=== PATIENT | female | born 1955 | race Caucasian/White ===

== ENCOUNTER 2017-10-30 19:44 | Emergency (ER) | payer OTHER ==
[2017-10-30] MEDS ORDERED: DIAZEPAM 10 MG/2 ML INJ SYRINGE ONE (20:55)
[2017-10-30 20:58] LABS: Absolute Lymphocytes (CBC) 0.3 K/uL (0.7-4.9); Absolute Monocytes 0.4 K/uL (0.1-1.3); Absolute Neutrophil 10.2 K/uL (1.8-8.0); Basophils % 0.3 % (0-1.3); Eosinophils % 0.2 % (0-4.4); Hematocrit 36.1 % (36.0-45.0); Lymphocytes % 2.5 % (15.3-44.8); MCH 31.3 pg (27.0-35.0); MCV 91.9 fL (80-100); MPV 8.9 fL (7.6-11.3); RBC Red Blood Cell Count 3.93 M/uL (3.86-4.86)
[2017-10-30] MEDS ORDERED: NA CHLORIDE 0.9% 1,000 ML ONE ×2 (20:58→21:44)
[2017-10-30 21:13] LABS: Potassium 4.8 mEq/L (3.6-5.0)
[2017-10-30 21:17] LABS: Blood Morphology Comment NOT SEEN (NOT SEEN); Platelet Estimate ADEQ; Urine White Blood Cell Casts OK
[2017-10-30 21:18] LABS: Urine Blood TRACE (NEG); Urine Glucose 1+ (NEG); Urine Protein 1+ (NEG)
[2017-10-30 21:19] LABS: Albumin 4.1 g/dL (3.2-5.5); Bilirubin Direct 0.2 mg/dL (0-0.2); Bilirubin Total 0.9 mg/dL (0.3-1.2); Magnesium 1.9 mg/dL (1.8-2.5); Protein, Total 7.1 g/dL (6.0-8.3)
[2017-10-30 21:26] LABS: CKMB Creatine Kinase MB 27.2 ng/ml (0.3-4.0)
[2017-10-30 21:29] LABS: Protime INR 1.01
[2017-10-30] MEDS ORDERED: INSULIN -REGULAR HUMAN 50 UNIT/0.5 ML ML ONE (21:44)
--- NOTE | 2017-10-30 23:05 | ER ---
Nurse's Notes [facility] Name: Phoebe Esteban Age: 62 yrs Sex: Female : 1955 Arrival Date: 10/30/2017 Time: 19:45 Bed 8 Private MD: Esau Hart V Diagnosis: Type 1 diabetes mellitus;Rhabdomyolysis;Stiff-man syndrome;Unspecified kidney failure Presentation: 10/30 19:45 Presenting complaint: EMS states: SHE HAS STIFFMAN SYNDROME AND GOT STUCK STANDING IN bp THE BATHROOM FROM 3 TO 7. Transition of care: patient was not received from another setting of care. Onset of symptoms was October 30, 2017 at 15:00. Initial Sepsis Screen: Does the patient meet any 2 criteria? No. Patient's initial sepsis screen is negative. Does the patient have a suspected source of infection? No. Patient's initial sepsis screen is negative. Care prior to arrival: IV initiated. 22 GA, in the left antecubital area. 19:45 Method Of Arrival: EMS: [facility] bp 19:45 Acuity: NELL 3 bp Triage Assessment: 19:51 General: Appears distressed, uncomfortable, slender, Behavior is cooperative, bp appropriate for age, anxious. Pain: Complains of pain in GENERALIZED. EENT: No deficits noted. Neuro: Level of Consciousness is awake, alert, obeys commands, Oriented to person, place, time, situation, Appropriate for age GENERALIZED TRUNCAL STIFFNESS. Cardiovascular: No deficits noted. Respiratory: Airway is patent Respiratory effort is even, unlabored, Respiratory pattern is regular, symmetrical. GI: No deficits noted. : No signs and/or symptoms were reported regarding the genitourinary system. Derm: No deficits noted. Musculoskeletal: Circulation, motion, and sensation intact. Range of motion: limited in left hip, left knee, left ankle, right hip, right knee and right ankle. Historical: - Allergies: 19:51 No Known Allergies; bp - Home Meds: 19:51 Humalog 100 unit/mL Sub-Q crtg [Active]; TAJAYO [Active]; MAMENATINE [Active]; bp tizanidine oral oral [Active]; - PMHx: 19:51 Diabetes - IDDM; Hypertension; STIFFMAN SYNDROME; Dementia; bp - Immunization history:: Adult Immunizations up to date. - Social history:: Smoking status: Patient/guardian denies using tobacco. - Family history:: not pertinent. Screenin:55 Abuse screen: Denies threats or abuse. Denies injuries from another. Nutritional bp screening: No deficits noted. Tuberculosis screening: No symptoms or risk factors identified. Fall Risk No fall in past 12 months (0 pts). Secondary diagnosis (15 points) dementia, impaired mobility, No IV (0 pts). Ambulatory Aid- Crutches/Cane/Walker (15 pts). Gait- Normal/Bed Rest/Wheelchair (0 pts) Mental Status- Oriented to own ability (0 pts). Total Nelson Fall Scale indicates Low Risk Score (25-44 pts). Fall prevention measures have been instituted. Side Rails Up X 2 Frequent Obs/Assesments occuring Family Present and informed to notify staff if they need to leave bedside As available Patient and Family Educated on Fall Prevention Program and strategies. Assessment: 19:55 General: SEE TRIAGE NOTE. bp 21:58 Reassessment: PT AFFIRMS RELIEF OF S/S. VS STABLE ON MONITOR. REPEAT CARDIACS DUE AT bp 2230. 22:48 Reassessment: PT VS STABLE ON MONITOR, MILD ST NOTED. REPEAT LABS IN PROCESS, DISPO bp PENDING. 23:16 Reassessment: PT D/C HOME VIA W/C, DX WITH EXACERBATION OF CHRONIC CONDITIONS bp (STIFF-MAN SYNDROME AND DM) AND RHABDOMYOLYSIS. Vital Signs: 19:51 BP 172 / 89; Pulse 108; Resp 20; Temp 97.9; Pulse Ox 98% ; Weight 40.82 kg (R); bp 21:00 BP 149 / 82; Pulse 106; Resp 23; Pulse Ox 97% ; bp 22:46 BP 177 / 89; Pulse 111; Resp 23; Pulse Ox 98% ; bp ED Course: 19:45 Patient arrived in ED. am2 19:45 Félix Dumont, CHOCO is Primary Nurse. bp 19:45 Esau Hart MD is Private Physician. am2 19:47 Triage completed. bp 19:55 Arm band placed on. bp 19:55 Patient has correct armband on for positive identification. Bed in low position. Call bp light in reach. Side rails up X2. Adult w/ patient. 20:23 Duc Rubalcava MD is Attending Physician. chilango 20:30 Carrillo cath inserted, using sterile technique, 16 Fr., by tx, balloon inflated, to tl2 gravity drainage, urine specimen collected. returned clear yellow urine. Patient tolerated well. 21:24 Notified ED physician of a critical lab result(s). ckmb 27.2. 23:05 Esau Hart MD is Referral Physician. [facility] 23:16 No provider procedures requiring assistance completed. Carrillo cath removed intact, bp balloon deflated. IV discontinued, intact, bleeding controlled, No redness/swelling at site. Pressure dressing applied. Administered Medications: 20:30 Drug: NS 0.9% 1000 ml Route: IV; Rate: 125 ml/hr; Site: left antecubital; bp 21:08 Drug: Valium 2 mg Route: IVP; Site: left antecubital; bp 21:33 Follow up: Response: No adverse reaction bp 21:51 Drug: NS 0.9% 1000 ml Route: IV; Rate: 1 bolus; Site: left antecubital; bp 21:51 Drug: Insulin Regular Human 10 units {Co-Signature: tl2 (Josephine Chiu RN).} Route: IVP; bp Site: left antecubital; 22:47 Follow up: Response: No adverse reaction bp 22:20 Drug: Valium 2 mg Route: IVP; Site: left antecubital; bp 22:46 Follow up: Response: No adverse reaction bp Point of Care Testing: Blood Glucose: 22:46 Blood Glucose: 175 mg/dL; bp Ranges: Outcome: 23:05 Discharge ordered by . chilango 23:17 Discharged to home via wheelchair, with family. bp 23:17 Condition: stable 23:17 Discharge instructions given to patient, Instructed on discharge instructions, follow up and referral plans. 23:45 Patient left the ED. bp Signatures: Duc Rubalcava MD MD cha Chretien, Felicia RN Josephine Navas RN RN tl2 Shy Edouard am2 Félix Dumont RN RN bp Taylor Knox RN tl2 Corrections: (The following items were deleted from the chart) 21:09 19:45 Care prior to arrival: None. bp bp
--- NOTE | 2017-10-30 23:05 | EDPHYS ---
Physician Documentation [facility] Name: Phoebe Esteban Age: 62 yrs Sex: Female : 1955 Arrival Date: 10/30/2017 Time: 19:45 Bed 8 Private MD: Esau Hart V ED Physician Duc Rubalcava HPI: 10/30 21:25 This 62 yrs old Female presents to ER via EMS with complaints of Stiffness. chilango 21:25 hx of stiffman syndrome. Onset: The symptoms/episode began/occurred just prior to [facility] arrival. Severity of symptoms: At their worst the symptoms were mild in the emergency department the symptoms are unchanged. The patient has not experienced similar symptoms in the past. Historical: - Allergies: 19:51 No Known Allergies; bp - Home Meds: 19:51 Humalog 100 unit/mL Sub-Q crtg [Active]; TAJAYO [Active]; MAMENATINE [Active]; bp tizanidine oral oral [Active]; - PMHx: 19:51 Diabetes - IDDM; Hypertension; STIFFMAN SYNDROME; Dementia; bp - Immunization history:: Adult Immunizations up to date. - Social history:: Smoking status: Patient/guardian denies using tobacco. - Family history:: not pertinent. ROS: 21:25 Constitutional: Negative for fever, chills, and weight loss, Eyes: Negative for injury, chilango pain, redness, and discharge, ENT: Negative for injury, pain, and discharge, Neck: Negative for injury, pain, and swelling, Cardiovascular: Negative for chest pain, palpitations, and edema, Respiratory: Negative for shortness of breath, cough, wheezing, and pleuritic chest pain, Abdomen/GI: Negative for abdominal pain, nausea, vomiting, diarrhea, and constipation, : Negative for injury, bleeding, discharge, and swelling, MS/Extremity: Negative for injury and deformity, Skin: Negative for injury, rash, and discoloration, Neuro: Negative for headache, weakness, numbness, tingling, and seizure, Psych: Negative for depression, anxiety, suicide ideation, homicidal ideation, and hallucinations, Allergy/Immunology: Negative for hives, rash, and allergies, Endocrine: Negative for neck swelling, polydipsia, polyuria, polyphagia, and marked weight changes, Hematologic/Lymphatic: Negative for swollen nodes, abnormal bleeding, and unusual bruising. 21:25 Back: Positive for decreased range of motion, pain at rest, pain with movement. Exam: 21:25 Constitutional: This is a well developed, well nourished patient who is awake, alert, chilango and in no acute distress. Head/Face: Normocephalic, atraumatic. Eyes: Pupils equal round and reactive to light, extra-ocular motions intact. Lids and lashes normal. Conjunctiva and sclera are non-icteric and not injected. Cornea within normal limits. Periorbital areas with no swelling, redness, or edema. ENT: Nares patent. No nasal discharge, no septal abnormalities noted. Tympanic membranes are normal and external auditory canals are clear. Oropharynx with no redness, swelling, or masses, exudates, or evidence of obstruction, uvula midline. Mucous membranes moist. Neck: Trachea midline, no thyromegaly or masses palpated, and no cervical lymphadenopathy. Supple, full range of motion without nuchal rigidity, or vertebral point tenderness. No Meningismus. Chest/axilla: Normal chest wall appearance and motion. Nontender with no deformity. No lesions are appreciated. Cardiovascular: Regular rate and rhythm with a normal S1 and S2. No gallops, murmurs, or rubs. Normal PMI, no JVD. No pulse deficits. Respiratory: Lungs have equal breath sounds bilaterally, clear to auscultation and percussion. No rales, rhonchi or wheezes noted. No increased work of breathing, no retractions or nasal flaring. Abdomen/GI: Soft, non-tender, with normal bowel sounds. No distension or tympany. No guarding or rebound. No evidence of tenderness throughout. Skin: Warm, dry with normal turgor. Normal color with no rashes, no lesions, and no evidence of cellulitis. MS/ Extremity: Pulses equal, no cyanosis. Neurovascular intact. Full, normal range of motion. Neuro: Awake and alert, GCS 15, oriented to person, place, time, and situation. Cranial nerves II-XII grossly intact. Motor strength 5/5 in all extremities. Sensory grossly intact. Cerebellar exam normal. Normal gait. Psych: Awake, alert, with orientation to person, place and time. Behavior, mood, and affect are within normal limits. 21:25 Back: pain, that is mild, ROM is painful, normal spinal alignment noted, CVA tenderness, is absent. Vital Signs: 19:51 BP 172 / 89; Pulse 108; Resp 20; Temp 97.9; Pulse Ox 98% ; Weight 40.82 kg (R); bp 21:00 BP 149 / 82; Pulse 106; Resp 23; Pulse Ox 97% ; bp 22:46 BP 177 / 89; Pulse 111; Resp 23; Pulse Ox 98% ; bp MDM: 20:23 Patient medically screened. [facility] 21:31 Data reviewed: vital signs, nurses notes, lab test result(s), EKG, radiologic studies, chilango plain films. 10/30 20:28 Order name: Basic Metabolic Panel; Complete Time: 21:28 [facility] 10/30 20:28 Order name: BNP; Complete Time: 21:28 [facility] 10/30 20:28 Order name: CBC with Diff; Complete Time: 21:28 [facility] 10/30 20:28 Order name: Ckmb; Complete Time: 21:28 [facility] 10/30 20:28 Order name: CPK; Complete Time: 21:28 [facility] 10/30 20:28 Order name: LFT's; Complete Time: 21:28 [facility] 10/30 20:28 Order name: Magnesium; Complete Time: 21:28 [facility] 10/30 20:28 Order name: PT-INR; Complete Time: 22:54 [facility] 10/30 20:28 Order name: Ptt, Activated; Complete Time: 22:54 [facility] 10/30 20:28 Order name: Troponin (emerg Dept Use Only); Complete Time: 21:28 [facility] 10/30 20:28 Order name: Lipase; Complete Time: 21:28 [facility] 10/30 20:28 Order name: Blood Culture Adult (2) [facility] 10/30 20:28 Order name: Urine Culture [facility] 10/30 20:59 Order name: CBC Smear Scan; Complete Time: 21:28 EDMS 10/30 20:28 Order name: EKG; Complete Time: 20:28 [facility] 10/30 20:28 Order name: Cardiac monitoring; Complete Time: 20:51 [facility] 10/30 20:28 Order name: EKG - Nurse/Tech; Complete Time: 20:51 [facility] 10/30 20:28 Order name: IV Saline Lock; Complete Time: 20:51 [facility] 10/30 21:01 Order name: Urine Dipstick--Ancillary (enter results); Complete Time: 21:28 eb 10/30 21:32 Order name: Ckmb [facility] 10/30 21:32 Order name: Creatine Phosphokinase [facility] 10/30 21:32 Order name: Troponin (emerg Dept Use Only) [facility] 10/30 20:28 Order name: Labs collected and sent; Complete Time: 20:51 [facility] 10/30 20:28 Order name: O2 Per Protocol; Complete Time: 20:51 [facility] 10/30 20:28 Order name: O2 Sat Monitoring; Complete Time: 20:51 [facility] 10/30 20:28 Order name: Urine Dipstick-Ancillary (obtain specimen); Complete Time: 20:51 [facility] 10/30 20:37 Order name: Carrillo; Complete Time: 20:39 bp 10/30 21:32 Order name: Repeat Cardiac Enzymes at: 1030pm; Complete Time: 22:46 [facility] 10/30 22:20 Order name: Fingerstick Glucose: AT 2230; Complete Time: 22:46 bp Administered Medications: 20:30 Drug: NS 0.9% 1000 ml Route: IV; Rate: 125 ml/hr; Site: left antecubital; bp 21:08 Drug: Valium 2 mg Route: IVP; Site: left antecubital; bp 21:33 Follow up: Response: No adverse reaction bp 21:51 Drug: NS 0.9% 1000 ml Route: IV; Rate: 1 bolus; Site: left antecubital; bp 21:51 Drug: Insulin Regular Human 10 units {Co-Signature: tl2 (Josephine Chiu RN).} Route: IVP; bp Site: left antecubital; 22:47 Follow up: Response: No adverse reaction bp 22:20 Drug: Valium 2 mg Route: IVP; Site: left antecubital; bp 22:46 Follow up: Response: No adverse reaction bp Point of Care Testing: Blood Glucose: 22:46 Blood Glucose: 175 mg/dL; bp Ranges: Critical Glucose Levels:Adult <50 mg/dl or >400 mg/dl <40 mg/dl or >180 mg/dl Disposition: 10/30/17 23:05 Discharged to Home. Impression: Type 1 diabetes mellitus, Rhabdomyolysis, Stiff-man syndrome, Unspecified kidney failure. - Condition is Stable. - Discharge Instructions: Type 1 Diabetes Mellitus, Adult, Rhabdomyolysis, Diabetes Mellitus and Food. - Medication Reconciliation Form, Thank You Letter, Antibiotic Education, Prescription Opioid Use form. - Follow up: Esau Hart; When: 1 - 2 days; Reason: Recheck today's complaints, Continuance of care, Re-evaluation by your physician. - Problem is new. - Symptoms have improved. Signatures: Dispatcher [employer] EDMO Duc Rubalcava MD MD cha Peltier, Brian, RN RN bp Josephine Chiu RN tl2 Corrections: (The following items were deleted from the chart) 20:44 20:28 Chest Single View+RAD.RAD.BRZ ordered. EDMS EDMS 21:33 21:31 Chest Single View+RAD.RAD.BRZ ordered. EDMO EDMS 21:33 21:31 Chest Single View+RAD.RAD.BRZ ordered. [facility] EDMS 23:45 23:05 10/30/2017 23:05 Discharged to Home. Impression: Type 1 diabetes mellitus; bp Rhabdomyolysis; Stiff-man syndrome; Unspecified kidney failure. Condition is Stable. Discharge Instructions: Type 1 Diabetes Mellitus, Adult, Rhabdomyolysis, Diabetes Mellitus and Food. Forms are Medication Reconciliation Form, Thank You Letter, Antibiotic Education, Prescription Opioid Use. Follow up: Esau Hart; When: 1 - 2 days; Reason: Recheck today's complaints, Continuance of care, Re-evaluation by your physician. Problem is new. Symptoms have improved. chilango
[2017-10-30 23:28] LABS: CKMB Creatine Kinase MB 31.1 ng/ml (0.3-4.0)
[2017-10-30 23:49] VITALS: TEMP 97.9
[2017-10-30 23:52] VITALS: BP 177/89; O2SAT 98
--- NOTE | 2017-10-31 06:26 | EKG ---
Test Date: 2017-10-30 Test Time: 20:48:19 Tank Erector: ALYCIA MEASUREMENT RESULTS: Intervals: Rate: 104 IN: 120 QRSD: 82 QT: 334 QTc: 439 Terril: P: 78 IN: 120 QRS: 72 T: 51 INTERPRETIVE STATEMENTS: Sinus tachycardia Right atrial enlargement Borderline ECG No previous ECG available for comparison Electronically Signed On 10-31-17 06:25:41 CDT by Raul Markham
== END 2017-10-30 23:45 | disposition home or self-care (01) ==
LOC: ER 19:44
DX: M62.82 Rhabdomyolysis (principal); G25.82 Stiff-man syndrome; E10.9 Type 1 diabetes mellitus without complications; N19 Unspecified kidney failure; I10 Essential (primary) hypertension; Z79.4 Long term (current) use of insulin
CPT/HCPCS: 36415; 51702; 80048; 80076; 81003; 82550 ×2; 82553 ×2; 82962; 83690; 83735; 83880; 84484 ×2; 85025; 85610; 85730; 87040 ×2; 87086; 87088; 93005; 96374; 96375; 99284; J3360; J7030 ×2

== ENCOUNTER 2022-05-02 13:39 | Emergency (ER) | payer OTHER ==
[2022-05-02 14:31] LABS: Urine Blood Negative (Negative); Urine Glucose Negative (Negative); Urine Protein 1+ (Negative); Urine Specific Gravity >=1.030 (1.005-1.030)
[2022-05-02 14:50] LABS: Absolute Lymphocytes (CBC) 0.8 K/uL (0.7-4.9); Lymphocytes % 27.9 % (15.3-44.8); MCV 91.1 fL (80-100); MPV 9.1 fL (7.6-11.3)
[2022-05-02 14:51] LABS: Protime INR 0.99
--- NOTE | 2022-05-02 14:54 | RAD REPORT ---
EXAM DESCRIPTION: CT - Head Brain Wo Cont - 05/02/2022 2:39 pm CLINICAL HISTORY: Mental status change, persistent or worsening COMPARISON: No comparisons TECHNIQUE: All CT scans are performed using dose optimization technique as appropriate and may inclu de automated exposure control or mA/KV adjustment according to patient size. FINDINGS: No intracranial hemorrhage, hydrocephalus or extra-axial fluid collection.No areas of brai n edema or evidence of midline shift. Mild chronic small vessel ischemic changes The paranasal sinuses and mastoids are clear. The calvarium is intact. IMPRESSION: No acute intracranial abnormality.
[2022-05-02 15:08] LABS: Albumin 3.6 g/dL (3.4-5.0); Bilirubin Direct 0.1 mg/dL (0-0.2); Bilirubin Total 0.3 mg/dL (0.2-1.0); Magnesium 1.9 mg/dL (1.8-2.4); Potassium 3.6 mmol/L (3.5-5.1); Protein, Total 6.8 g/dL (6.4-8.2); Troponin High Sensitivity 11.3 pg/mL (<58.9); Urine Bacteria <20 /HPF (<20); Urine Mucus Slight /HPF (None Seen); Urine RBC <5 /HPF (None Seen)
--- NOTE | 2022-05-02 15:11 | RAD REPORT ---
EXAM DESCRIPTION: RAD - Chest Single View - 05/02/2022 2:59 pm CLINICAL HISTORY: COUGH COMPARISON: Abdomen Acute Series dated 03/31/2017 FINDINGS: Lines: None. Lungs: No evidence of edema or pneumonia. Pleural: No significant pleural effusions or pneumothorax. Cardiac: The heart size is within normal limits. Mediastinum: Within normal limits. Bones: No acute fractures. ACDF in the cervical spine. Intramedullary rode in the left humerus. Remot e right sided fractures. Other: None IMPRESSION: No acute cardiopulmonary disease.
[2022-05-02] MEDS ORDERED: CEFTRIAXONE 1000 MG/VIAL ONE (15:20)
[2022-05-02] MEDS ORDERED: NA CHLORIDE 0.9% 1,000 ML ONE (16:19)
--- NOTE | 2022-05-02 17:04 | ER ---
Nurse's Notes [facility] Name: Phoebe Esteban Age: 67 yrs Sex: Female : 1955 Arrival Date: 05/02/2022 Time: 13:44 Bed 5 Private MD: Diagnosis: UTI/ Urinary tract infection, site not specified;Type 1 diabetes mellitus with hyperglycemia;Other specified diabetes mellitus with hypoglycemia without coma Presentation: 05/02 13:48 Chief complaint: EMS states: that caregiver states she hasn't been herself for 4 days-1 mb9 week. States pt is having increased weakness and not acting like self. Caregiver is also worried about her broken tooth. EMS states that blood sugar was 51 upon arrival. They administered 30g oral glucose and increased to 56. Coronavirus screen: Client denies travel out of the [place] in the last 14 days. Ebola Screen: No symptoms or risks identified at this time. Initial Sepsis Screen: Does the patient meet any 2 criteria? No. Patient's initial sepsis screen is negative. Does the patient have a suspected source of infection? No. Patient's initial sepsis screen is negative. Risk Assessment: Do you want to hurt yourself or someone else? Patient reports no desire to harm self or others. Onset of symptoms was April 26, 2022. 13:48 Method Of Arrival: EMS: [facility] mb9 13:59 Acuity: NELL 2 mb9 Triage Assessment: 13:55 General: Appears in no apparent distress. comfortable, Behavior is calm, cooperative, mb9 appropriate for age. Pain: Denies pain. Historical: - Allergies: 13:51 No Known Allergies; mb9 - Home Meds: 13:51 Lisinopril Oral [Active]; Humalog 100 unit/mL Sub-Q crtg [Active]; mb9 - PMHx: 13:51 Diabetes - IDDM; Hypertension; STIFFMAN SYNDROME; Dementia; mb9 - PSHx: 13:51 Unable to Obtain; mb9 - Immunization history:: Adult Immunizations not up to date. - Social history:: Smoking status: Patient denies any tobacco usage or history of. Screenin:00 Abuse screen: Denies threats or abuse. Nutritional screening: No deficits noted. mb9 Tuberculosis screening: No symptoms or risk factors identified. Fall Risk None identified. Assessment: 14:00 General: Appears in no apparent distress. comfortable, Behavior is calm, cooperative, mb9 appropriate for age. 14:00 Pain: Denies pain. Neuro: Level of Consciousness is awake, alert, obeys commands, mb9 Oriented to person, place, time, situation, Appropriate for age. Cardiovascular: Heart tones S1 S2 present Rhythm is regular Chest pain is denied. Respiratory: Airway is patent Respiratory effort is even, unlabored, Respiratory pattern is tachypnea Breath sounds are clear bilaterally. GI: Abdomen is flat, Bowel sounds present X 4 quads. : Urine is cloudy. EENT: No signs and/or symptoms were reported regarding the EENT system. Derm: Skin is intact, Skin is dry, Skin is normal, Skin temperature is cool. Musculoskeletal: Capillary refill < 3 seconds, in bilateral Range of motion: limited in bilateral lower extremities. 14:26 Reassessment: first set of blood cultures set at 1426. mb9 15:46 General: Appears in no apparent distress. comfortable, Behavior is calm, cooperative, mb9 appropriate for age. Pain: Denies pain. Neuro: Level of Consciousness is awake, alert, obeys commands, Oriented to person, place, time, situation, Appropriate for age. Cardiovascular: Heart tones S1 S2 present Rhythm is regular. Respiratory: Airway is patent Respiratory effort is even, unlabored, Respiratory pattern is regular, Breath sounds are clear bilaterally. Derm: Skin is intact, Skin is dry, Skin is normal, Skin temperature is cool. 17:17 Pain: Denies pain. Neuro: Level of Consciousness is awake, alert, obeys commands, mb9 Oriented to person, place, time, situation, Appropriate for age. Cardiovascular: Heart tones S1 S2 present Rhythm is regular. Respiratory: Airway is patent Respiratory effort is even, unlabored, Respiratory pattern is regular. Derm: Skin is pink, warm \T\ dry. Vital Signs: 13:48 BP 182 / 92; Pulse 99; Resp 18; Temp 96.9(O); Pulse Ox 98% on R/A; Weight 63.5 kg (R); mb9 Height 5 ft. 4 in. (162.56 cm) (R); Pain 0/10; 14:14 BP 194 / 81; Pulse 89; Resp 28; Pulse Ox 98% on R/A; mb9 16:16 BP 194 / 89; Pulse 88; Resp 20; Pulse Ox 100% on R/A; Pain 0/10; mb9 17:16 BP 182 / 92; Pulse 88; Resp 18; Pulse Ox 100% on R/A; mb9 13:48 Body Mass Index 24.03 (63.50 kg, 162.56 cm) mb9 ED Course: 13:44 Patient arrived in ED. aa5 13:48 Cee Galvin, CHOCO is Primary Nurse. mb9 13:49 Duc Rubalcava MD is Attending Physician. chilango 13:51 Triage completed. mb9 13:53 Arm band placed on. mb9 14:00 Placed in gown. Bed in low position. Call light in reach. Side rails up X 1. Client mb9 placed on continuous cardiac and pulse oximetry monitoring. NIBP monitoring applied. groundwater monitoring technician on. Warm blanket given. 14:25 Urine collected: Urine Micro sent to lab. aa5 14:30 Lipase Sent. mb9 14:30 Urine Microscopic Only Sent. mb9 14:30 Basic Metabolic Panel Sent. mb9 14:30 CBC with Diff Sent. mb9 14:30 LFT's Sent. mb9 14:30 Magnesium Sent. mb9 14:30 Troponin HS Sent. mb9 14:30 PT-INR Sent. mb9 14:30 NT PRO-BNP Sent. mb9 14:32 Inserted saline lock: 20 gauge in right forearm, using aseptic technique. Blood mb9 collected. 14:32 Maintain EMS IV. Dressing intact. Good blood return noted. Site clean \T\ dry. Gauge \T\ mb 9 site: 20g in left AC. 14:41 CT Head Brain wo Cont In Process Unspecified. EDMS 14:55 Blood Culture Adult (2) Sent. mb9 14:55 Lipase Sent. mb9 14:55 EKG done, by ED staff, reviewed by uDc Rubalcava MD. mb9 15:01 XRAY Chest (1 view) In Process Unspecified. EDMS 17:25 No provider procedures requiring assistance completed. IV discontinued, intact, mb9 bleeding controlled, No redness/swelling at site. Pressure dressing applied. Administered Medications: 15:00 Drug: Rocephin (cefTRIAXone) 1 grams Route: IV; Rate: per protocol; Site: right forearm;mb9 15:39 Follow up: Response: No adverse reaction mb9 17:26 Follow up: Response: No adverse reaction mb9 16:30 Drug: NS 0.9% 1000 ml Route: IV; Rate: 1 bolus; Site: right antecubital; mb9 17:10 Follow up: Response: No adverse reaction; IV Status: Infusion continued mb9 17:16 Drug: Cipro (ciprofloxacin) 500 mg Route: PO; mb9 17:26 Follow up: Response: No adverse reaction mb9 Medication: 14:00 VIS not applicable for this client. mb9 Outcome: 17:03 Discharge ordered by MD. kee 17:25 Discharged to home via wheelchair. mb9 17:25 Condition: stable 17:25 Discharge instructions given to patient, family, Instructed on discharge instructions, Demonstrated understanding of instructions, follow-up care, medications, Prescriptions given X 1. 17:27 Patient left the ED. mb9 Signatures: Dispatcher [employer] EDDuc Deluna MD MD cha Calderon, Audri, RN RN aa5 Cee Galvin RN RN mb9 Corrections: (The following items were deleted from the chart) 13:55 13:48 Chief complaint: EMS states: that caregiver states she hasn't been herself for 4 mb9 days-1 week. States pt is having increased weakness and not acting like self. Caregiver is also worried about her broken tooth mb9 14:00 13:48 Acuity: NELL 3 mb9 mb9 15:48 14:00 Cardiovascular: Heart tones S1 S2 present Rhythm is regular Chest pain is denied mb9 mb9 16:16 15:47 EENT: mb9 mb9
--- NOTE | 2022-05-02 17:04 | EDPHYS ---
Physician Documentation [facility] Name: Phoebe Esteban Age: 67 yrs Sex: Female : 1955 Arrival Date: 05/02/2022 Time: 13:44 Bed 5 Private MD: ED Physician Duc Rubalcava HPI: 05/02 16:58 This 67 yrs old Female presents to ER via EMS with complaints of General chilango Weakness. 16:58 low blood glucose, 53 mg /dl. Onset: The symptoms/episode began/occurred 3 day(s) ago. chilango Severity of symptoms: At their worst the symptoms were mild in the emergency department the symptoms are unchanged. The patient has experienced similar episodes in the past, a few times. Historical: - Allergies: 13:51 No Known Allergies; mb9 - Home Meds: 13:51 Lisinopril Oral [Active]; Humalog 100 unit/mL Sub-Q crtg [Active]; mb9 - PMHx: 13:51 Diabetes - IDDM; Hypertension; STIFFMAN SYNDROME; Dementia; mb9 - PSHx: 13:51 Unable to Obtain; mb9 - Immunization history:: Adult Immunizations not up to date. - Social history:: Smoking status: Patient denies any tobacco usage or history of. ROS: 16:59 Constitutional: Negative for fever, chills, and weight loss, Eyes: Negative for injury, chilango pain, redness, and discharge, ENT: Negative for injury, pain, and discharge, Neck: Negative for injury, pain, and swelling, Cardiovascular: Negative for chest pain, palpitations, and edema, Respiratory: Negative for shortness of breath, cough, wheezing, and pleuritic chest pain, Abdomen/GI: Negative for abdominal pain, nausea, vomiting, diarrhea, and constipation, Back: Negative for injury and pain, : Negative for injury, bleeding, discharge, and swelling, MS/Extremity: Negative for injury and deformity, Skin: Negative for injury, rash, and discoloration, Psych: Negative for depression, anxiety, suicide ideation, homicidal ideation, and hallucinations, Allergy/Immunology: Negative for hives, rash, and allergies, Endocrine: Negative for neck swelling, polydipsia, polyuria, polyphagia, and marked weight changes, Hematologic/Lymphatic: Negative for swollen nodes, abnormal bleeding, and unusual bruising. 16:59 Neuro: Positive for altered mental status, weakness. Exam: 16:59 Constitutional: This is a well developed, well nourished patient who is awake, alert, chilango and in no acute distress. Head/Face: Normocephalic, atraumatic. Eyes: Pupils equal round and reactive to light, extra-ocular motions intact. Lids and lashes normal. Conjunctiva and sclera are non-icteric and not injected. Cornea within normal limits. Periorbital areas with no swelling, redness, or edema. ENT: Nares patent. No nasal discharge, no septal abnormalities noted. Tympanic membranes are normal and external auditory canals are clear. Oropharynx with no redness, swelling, or masses, exudates, or evidence of obstruction, uvula midline. Mucous membranes moist. Neck: Trachea midline, no thyromegaly or masses palpated, and no cervical lymphadenopathy. Supple, full range of motion without nuchal rigidity, or vertebral point tenderness. No Meningismus. Chest/axilla: Normal chest wall appearance and motion. Nontender with no deformity. No lesions are appreciated. Cardiovascular: Regular rate and rhythm with a normal S1 and S2. No gallops, murmurs, or rubs. Normal PMI, no JVD. No pulse deficits. Respiratory: Lungs have equal breath sounds bilaterally, clear to auscultation and percussion. No rales, rhonchi or wheezes noted. No increased work of breathing, no retractions or nasal flaring. Abdomen/GI: Soft, non-tender, with normal bowel sounds. No distension or tympany. No guarding or rebound. No evidence of tenderness throughout. Back: No spinal tenderness. No costovertebral tenderness. Full range of motion. Female : Normal external genitalia. Skin: Warm, dry with normal turgor. Normal color with no rashes, no lesions, and no evidence of cellulitis. MS/ Extremity: Pulses equal, no cyanosis. Neurovascular intact. Full, normal range of motion. Neuro: Awake and alert, GCS 15, oriented to person, place, time, and situation. Cranial nerves II-XII grossly intact. Motor strength 5/5 in all extremities. Sensory grossly intact. Cerebellar exam normal. Normal gait. Psych: Awake, alert, with orientation to person, place and time. Behavior, mood, and affect are within normal limits. 16:59 ECG was reviewed by the Attending Physician. Vital Signs: 13:48 BP 182 / 92; Pulse 99; Resp 18; Temp 96.9(O); Pulse Ox 98% on R/A; Weight 63.5 kg (R); mb9 Height 5 ft. 4 in. (162.56 cm) (R); Pain 0/10; 14:14 BP 194 / 81; Pulse 89; Resp 28; Pulse Ox 98% on R/A; mb9 16:16 BP 194 / 89; Pulse 88; Resp 20; Pulse Ox 100% on R/A; Pain 0/10; mb9 17:16 BP 182 / 92; Pulse 88; Resp 18; Pulse Ox 100% on R/A; mb9 13:48 Body Mass Index 24.03 (63.50 kg, 162.56 cm) [facility] MDM: 13:49 Patient medically screened. [facility] 05/02 13:58 Order name: Glucose, Ancillary Testing; Complete Time: 15:55 [facility] 05/02 14:08 Order name: Basic Metabolic Panel; Complete Time: 15:55 [facility] 05/02 14:08 Order name: CBC with Diff; Complete Time: 15:55 [facility] 05/02 14:08 Order name: LFT's; Complete Time: 15:55 [facility] 05/02 14:08 Order name: Magnesium; Complete Time: 15:55 [facility] 05/02 14:08 Order name: NT PRO-BNP; Complete Time: 15:55 [facility] 05/02 14:08 Order name: PT-INR; Complete Time: 15:55 [facility] 05/02 14:08 Order name: Troponin HS; Complete Time: 15:55 [facility] 05/02 14:08 Order name: Lipase; Complete Time: 15:55 [facility] 05/02 14:08 Order name: Lactate w/ 2H reflex if indic.; Complete Time: 15:55 [facility] 05/02 14:08 Order name: Blood Culture Adult (2) [facility] 05/02 14:08 Order name: Urine Microscopic Only; Complete Time: 15:55 [facility] 05/02 14:26 Order name: Glucose, Ancillary Testing; Complete Time: 15:55 [facility] 05/02 14:31 Order name: Urine Dipstick-Ancillary; Complete Time: 15:55 [facility] 05/02 13:59 Order name: Diet Regular; Complete Time: 13:59 [facility] 05/02 14:08 Order name: XRAY Chest (1 view); Complete Time: 15:55 [facility] 05/02 14:08 Order name: EKG; Complete Time: 14:09 [facility] 05/02 14:08 Order name: Cardiac monitoring; Complete Time: 14:15 [facility] 05/02 14:08 Order name: EKG - Nurse/Tech; Complete Time: 14:55 [facility] 05/02 14:08 Order name: IV Saline Lock; Complete Time: 14:30 [facility] 05/02 14:08 Order name: Labs collected and sent; Complete Time: 14:30 [facility] 05/02 14:08 Order name: O2 Per Protocol; Complete Time: 14:15 [facility] 05/02 14:08 Order name: O2 Sat Monitoring; Complete Time: 14:15 [facility] 05/02 14:08 Order name: Urine Dipstick-Ancillary (obtain specimen); Complete Time: 14:30 [facility] 05/02 14:09 Order name: CT Head Brain wo Cont; Complete Time: 15:55 [facility] 05/02 15:12 Order name: Urine Culture [facility] 05/02 16:57 Order name: Vital Signs; Complete Time: 17:16 [facility] EC:59 Rate is 80 beats/min. Rhythm is regular. QRS [place] is Normal. NV interval is normal. QRS chilango interval is normal. QT interval is normal. No Q waves. T waves are Normal. No ST changes noted. Clinical impression: NSR w/ Non-specific ST/T Changes and No evidence of ischemia. Interpreted by me. Reviewed by me. Administered Medications: 15:00 Drug: Rocephin (cefTRIAXone) 1 grams Route: IV; Rate: per protocol; Site: right forearm;mb9 15:39 Follow up: Response: No adverse reaction mb9 17:26 Follow up: Response: No adverse reaction mb9 16:30 Drug: NS 0.9% 1000 ml Route: IV; Rate: 1 bolus; Site: right antecubital; mb9 17:10 Follow up: Response: No adverse reaction; IV Status: Infusion continued mb9 17:16 Drug: Cipro (ciprofloxacin) 500 mg Route: PO; mb9 17:26 Follow up: Response: No adverse reaction mb9 Disposition Summary: 05/02/22 17:03 Discharge Ordered Location: Home chilango Problem: new chilango Symptoms: have improved chilango Condition: Stable chilango Diagnosis - UTI/ Urinary tract infection, site not specified chilango - Type 1 diabetes mellitus with hyperglycemia chilango - Other specified diabetes mellitus with hypoglycemia without coma chilango Followup: chilango - With: Private Physician - When: 2 - 3 days - Reason: Recheck today's complaints, Continuance of care, Re-evaluation by your physician Discharge Instructions: - Discharge Summary Sheet chilango - Dysuria chilango - Hyperglycemia chilango - Hypoglycemia chilango - Urinary Tract Infection, Adult chilango - Urinary Tract Infection, Adult, [id number] chilango - Hyperglycemia, [id number] chilango Forms: - Medication Reconciliation Form chilango - Thank You Letter chilango - Antibiotic Education chilango - Prescription Opioid Use chilango Prescriptions: - Cipro 250 mg Oral Tablet - take 1 tablet by ORAL route every 12 hours; 14 tablet; Refills: 0, Product chilango Selection Permitted Signatures: Dispatcher [employer] Duc Barron MD MD cha Breneman, Mary Beth RN RN mb9
[2022-05-02] MEDS ORDERED: CIPROFLOXACIN HCL 500 MG TAB ONE (17:15)
[2022-05-02 17:45] VITALS: TEMP 96.9
[2022-05-02 17:57] VITALS: O2SAT 100
[2022-05-02 17:58] VITALS: BP 182/92
--- NOTE | 2022-05-04 19:17 | EKG ---
Test Date: 2022-05-02 Test Time: 14:50:46 Business Systems Analyst: MB MEASUREMENT RESULTS: Intervals: Rate: 80 OK: 122 QRSD: 78 QT: 388 QTc: 447 [place]: P: 92 OK: 122 QRS: 103 T: 32 INTERPRETIVE STATEMENTS: Suspect arm lead reversal, interpretation assumes no reversal Normal sinus rhythm Rightward axis Nonspecific ST abnormality Abnormal ECG Compared to ECG 10/30/2017 20:48:19 Right-axis deviation now present ST (T wave) deviation now present Sinus tachycardia no longer present Atrial abnormality no longer present Electronically Signed On 05-04-22 19:10:59 SERVICE REPRESENTATIVE by Naldo Nunez
== END 2022-05-02 17:27 | disposition home or self-care (01) ==
LOC: ER 13:39
DX: N39.0 Urinary tract infection, site not specified (principal); E10.65 Type 1 diabetes mellitus with hyperglycemia; E13.649 Other specified diabetes mellitus with hypoglycemia without coma
CPT/HCPCS: 96361; 93005; 87040 ×2; 87088; 85025; 87086; 80048; 36415; 83735; 85610; 82947 ×2; 80076; 83605 ×2; 84484; 83690; 83880; 70450; 71045; 96374; 99285; J7030; 81003; 81015

== ENCOUNTER 2023-06-25 03:56 | Observation (INO) | payer OTHER ==
--- OUTSIDE RECORDS SUMMARY | 2023-06-25 03:58 | XMS REPORT | Continuity of Care Document ---
Author Name Unknown Address [address] [place] [address] thconnect Address [address] [place] [address] [address] [place] [address] Care Team Providers Care Electric Blanket Wirer Name Role Phone [email or web address] Attending Clinician Unavaila ble [email or web address] Admitting Clinician Unavaila ble Encounters Start Date/Time End Date/Time Encounter Type Admission Type Attending Clinicians Care Facility Care Department Encounter ID Source 2023-04-13 00:00:00 2023-04-13 00:00:00 Outpatient [email or web address] [facility] [id number] [facility]
--- NOTE | 2023-06-25 04:20 | ER ---
Nurse's Notes [facility] Name: Phoebe Esteban Age: 68 yrs Sex: Female : 1955 Arrival Date: 06/25/2023 Time: 03:56 Bed 16 Private MD: Diagnosis: Fall on same level, unspecified;Weakness-stiffman syndrome;Unspecified injury of head, initial encounter-large right occipital hematoma;Hypokalemia;Solitary pulmonary nodule-right upper lobe 2.3 cm;Fracture of clavicle-right, subacute;Pleural effusion, not elsewhere classified-right, moderate;Multiple fractures of ribs, right side;History of falling;Repeated falls Presentation: 06/25 04:02 Chief complaint: Patient states: Patient C/O head pain of 5 with hematoma to left pf1 posterior scalp, S/P fall while standing from the toilet, fell back and hit head onto the floor, onset 45 minutes SPEECH CORRECTION CONSULTANT. Patient denies any LOC. EMS stated patient was given Tylenol 1000 mg per family member, SPEECH CORRECTION CONSULTANT. Coronavirus screen: Vaccine status: Patient reports being unvaccinated. Client denies travel out of the [place] in the last 14 days. At this time, the client does not indicate any symptoms associated with coronavirus-19. Ebola Screen: Patient negative for fever greater than or equal to 101.5 degrees Fahrenheit, and additional compatible Ebola Virus Disease symptoms. Initial Sepsis Screen: Does the patient meet any 2 criteria? No. Patient's initial sepsis screen is negative. Does the patient have a suspected source of infection? No. Patient's initial sepsis screen is negative. Risk Assessment: Do you want to hurt yourself or someone else? Patient reports no desire to harm self or others. 04:02 Method Of Arrival: EMS: [facility] pf1 04:02 Acuity: NELL 3 pf1 Historical: - Allergies: 04:12 No Known Allergies; pf1 04:07 No Known Allergies; pf1 - PMHx: 04:12 Dementia; Depression; Diabetes - IDDM; Hypercholesterolemia; Hypertension; STIFFMAN pf1 SYNDROME; 04:07 STIFFMAN SYNDROME; Hypertension; Diabetes - IDDM; Dementia; Hypercholesterolemia; pf1 depression; - PSHx: 04:12 Tonsillectomy; pf1 04:07 Tonsillectomy; pf1 - Immunization history:: Adult Immunizations not up to date, Client reports having NOT received the Covid vaccine. Last tetanus immunization: > 10 years ago Flu vaccine is not up to date. Adult Immunizations not up to date, Client reports having NOT received the Covid vaccine. Last tetanus immunization: > 10 years ago Flu vaccine is not up to date. - Social history:: Smoking status: Patient denies any tobacco usage or history of. Patient/guardian denies using alcohol, street drugs. - Family history:: not pertinent. Screenin:53 [facility] ED Fall Risk Assessment (Adult) History of falling in the last 3 months, tm6 including since admission Yes- fall prone (multiple falls) (3 pts) Confusion or Disorientation No (0 pts) Intoxicated or Sedated No (0 pts) Impaired Gait Yes (1 pt) Mobility Assist Device Used Yes (1 pt) Altered Elimination No (0 pt) Score/Fall Risk Level 3 or more points = High Risk Oriented to surroundings, Maintained a safe environment, Educated pt \T\ family on fall prevention, incl call for assistance when getting out of bed, Assessed \T\ reinforced patient's understanding of fall precautions, Provided non-skid footwear, Hourly rounding (assess needs \T\ fall precautionary measures) done. Abuse screen: Denies threats or abuse. Denies injuries from another. Nutritional screening: No deficits noted. Tuberculosis screening: No symptoms or risk factors identified. Assessment: 04:43 General: Appears in no apparent distress. Behavior is calm, cooperative. Pain: tm6 Complains of pain in right occipital area Pain currently is 2 out of 10 on a pain scale. 04:53 Neuro: Level of Consciousness is awake, alert, obeys commands, Oriented to person, tm6 place, time, situation. Cardiovascular: Capillary refill < 3 seconds Patient's skin is warm and dry. Respiratory: Airway is patent Respiratory effort is even, unlabored, Respiratory pattern is regular, symmetrical. GI: Abdomen is flat, non-distended. : No signs and/or symptoms were reported regarding the genitourinary system. EENT: No signs and/or symptoms were reported regarding the EENT system. Derm: Wound noted occipital area Wound is contusion. Musculoskeletal: No signs and/or symptoms reported regarding the musculoskeletal system. 04:57 Reassessment: report attempted. tm6 06:26 Reassessment: Patient appears in no apparent distress at this time. Patient and/or tm6 family updated on plan of care and expected duration. Pain level reassessed. Patient is alert, oriented x 3, equal unlabored respirations, skin warm/dry/pink. Vital Signs: 04:02 BP 197 / 82; Pulse 89; Resp 18; Temp 98.5; Pulse Ox 96% on R/A; Weight 99.79 kg; Height pf1 5 ft. 4 in. ; Pain 5/10; 04:43 BP 191 / 74; Pulse 124; Resp 25; Pulse Ox 95% on R/A; tm6 05:49 BP 185 / 80; Pulse 104; Resp 24; Pulse Ox 98% on R/A; tm6 06:26 BP 208 / 117; Pulse 94; Resp 19; Pulse Ox 96% on R/A; Pain 2/10; tm6 06:38 BP 187 / 110; Pulse 107; Pulse Ox 94% on R/A; tm6 04:02 Body Mass Index 37.76 (99.79 kg, 162.56 cm) pf1 04:02 Pain Scale: Adult pf1 06:26 Pain Scale: Adult tm6 [place] Coma Score: 04:10 Eye Response: spontaneous(4). Motor Response: obeys commands(6). Verbal Response: chilango oriented(5). Total: 15. 04:16 Eye Response: spontaneous(4). Motor Response: obeys commands(6). Verbal Response: chilango oriented(5). Total: 15. NIH Stroke Scale Scores: 04:10 NIHSS Score: 0 cihlango ED Course: 04:02 Patient arrived in ED. chilango 04:02 Duc Rubalcava MD is Attending Physician. chilango 04:07 Nilson Flower, CHOCO is Primary Nurse. tm6 04:07 Triage completed. pf1 04:18 Esau Hart MD is Hospitalizing Provider. chilango 04:25 XRAY Chest (1 view) In Process Unspecified. EDMS 04:53 Patient has correct armband on for positive identification. Bed in low position. Call tm6 light in reach. Side rails up X2. Provided Education on: plan of care. Client placed on continuous cardiac and pulse oximetry monitoring. NIBP monitoring applied. air sampling and monitoring on. Door closed. Noise minimized. Warm blanket given. 04:53 No provider procedures requiring assistance completed. Inserted saline lock: 22 gauge tm6 in right antecubital area, using aseptic technique. 07:06 Report given to Laina WILHELM. tm6 07:06 Inserted saline lock: 20 gauge in left forearm, using aseptic technique. tm6 07:37 Patient admitted, IV remains in place. db Administered Medications: 05:30 Discontinued: ns 0.9% 1000 ml IV at 125 ml/hr continuous chilango 05:06 Drug: NS 0.9% IV 1000 ml IV at 125 ml/hr continuous Route: IV; Rate: 125 ml/hr; Site: tm6 right antecubital; 05:47 Follow up: IV Status: Order to discontinue infusion tm6 06:02 Drug: NS 0.9% with KCl IV 20 mEq/L 1000 ml IV at 125 ml/hr continuous Route: IV; Rate: tm6 125 ml/hr; Site: right antecubital; 06:03 Drug: Potassium Chloride IV 20 mEq IV at per protocol once; administer over 1-2 hours tm6 Route: IV; Rate: per protocol; Site: right antecubital; 06:03 Drug: Potassium PO Effervescent Tablet 25 mEq PO once; dissolve in 4 ounces of water or tm6 juice Route: PO; Medication: 04:53 VIS not applicable for this client. tm6 Outcome: 04:20 Decision to Hospitalize by Provider. chilango 06:49 Admitted to Med/surg room 229, Report called to Althea WILHELM tm6 06:49 Condition: stable 06:49 Instructed on the need for admit, 07:38 Patient left the ED. db NIH Stroke Scale - NIH Stroke Score Date: 06/25/2023 Time: 04:10 Total Score = 0 10. Dysarthria (speech clarity - read or repeat words) - 0(Normal) 11. Extinction and Inattention (visual/tactile/auditory/spatial/personal) - 0(No abnormality) 1a. Level of Consciousness (LOC) - 0(Alert) 1b. Level of Consciousness (LOC) (Month \T\ Age) - 0(Both) 1c. LOC Commands (Open \T\ Closes Eyes/Senior Water Resources Engineer) - 0(Both) 2. Best Gaze (Lateral Gaze Paresis) - 0(Normal) 3. Visual Field Loss - 0(No visual loss) 4. Facial Palsy - 0(Normal) 5a. Left Arm: Motor (10-second hold) - 0(No drift) 5b. Right Arm: Motor (10-second hold) - 0(No drift) 6a. Left Leg: Motor (5-second hold - always test supine) - 0(No drift) 6b. Right Leg: Motor (5-second hold - always test supine) - 0(No drift) 7. Limb Ataxia (finger/nose \T\ heel/bhakta - test with eyes open) - 0(Absent) 8. Sensory Loss (pinprick arms/legs/face) - 0(Normal) 9. Best Language: Aphasia (description/naming/reading) - 0(No aphasia) Initials: chilango Signatures: Dispatcher [employer] EDDuc Deluna MD MD cha Benton, Danielle, RN RN Vivian Milian RN RN pf1 Nilson Flower RN RN tm6
--- NOTE | 2023-06-25 04:20 | EDPHYS ---
Physician Documentation [facility] Name: Phoebe Esteban Age: 68 yrs Sex: Female : 1955 Arrival Date: 06/25/2023 Time: 03:56 Bed 16 Private MD: LUKASZ Physician Duc Rubalcava HPI: 06/25 04:10 This 68 yrs old Female presents to ER via EMS with complaints of stiff and chilango fall, hit head. 04:10 The patient or guardian reports injury, pain, swelling, tenderness. The complaints chilango affect the right occipital area. Context of injury: The problem was sustained at home. Onset: The symptoms/episode began/occurred just prior to arrival. Associated signs and symptoms: Loss of consciousness: This patient did not experience any loss of consciousness. Pertinent positives: nausea. Severity of symptoms: At their worst the symptoms were moderate, in the emergency department the symptoms are unchanged. The patient has not experienced similar symptoms in the past. Historical: - Allergies: 04:12 No Known Allergies; pf1 04:07 No Known Allergies; pf1 - PMHx: 04:12 Dementia; Depression; Diabetes - IDDM; Hypercholesterolemia; Hypertension; STIFFMAN pf1 SYNDROME; 04:07 STIFFMAN SYNDROME; Hypertension; Diabetes - IDDM; Dementia; Hypercholesterolemia; pf1 depression; - PSHx: 04:12 Tonsillectomy; pf1 04:07 Tonsillectomy; pf1 - Immunization history:: Adult Immunizations not up to date, Client reports having NOT received the Covid vaccine. Last tetanus immunization: > 10 years ago Flu vaccine is not up to date. Adult Immunizations not up to date, Client reports having NOT received the Covid vaccine. Last tetanus immunization: > 10 years ago Flu vaccine is not up to date. - Social history:: Smoking status: Patient denies any tobacco usage or history of. Patient/guardian denies using alcohol, street drugs. - Family history:: not pertinent. ROS: 04:10 Constitutional: Negative for fever, chills, and weight loss, Eyes: Negative for injury, chilango pain, redness, and discharge, ENT: Negative for injury, pain, and discharge, Neck: Negative for injury, pain, and swelling, Cardiovascular: Negative for chest pain, palpitations, and edema, Respiratory: Negative for shortness of breath, cough, wheezing, and pleuritic chest pain, Abdomen/GI: Negative for abdominal pain, nausea, vomiting, diarrhea, and constipation, Back: Negative for injury and pain, : Negative for injury, bleeding, discharge, and swelling, MS/Extremity: Negative for injury and deformity, Skin: Negative for injury, rash, and discoloration, Psych: Negative for depression, anxiety, suicide ideation, homicidal ideation, and hallucinations, Allergy/Immunology: Negative for hives, rash, and allergies, Endocrine: Negative for neck swelling, polydipsia, polyuria, polyphagia, and marked weight changes, Hematologic/Lymphatic: Negative for swollen nodes, abnormal bleeding, and unusual bruising, 04:10 Neuro: Positive for dizziness, headache, weakness, Exam: 04:10 Constitutional: This is a well developed, well nourished patient who is awake, alert, chilango and in no acute distress. Head/Face: Normocephalic, atraumatic. Eyes: Pupils equal round and reactive to light, extra-ocular motions intact. Lids and lashes normal. Conjunctiva and sclera are non-icteric and not injected. Cornea within normal limits. Periorbital areas with no swelling, redness, or edema. ENT: Nares patent. No nasal discharge, no septal abnormalities noted. Tympanic membranes are normal and external auditory canals are clear. Oropharynx with no redness, swelling, or masses, exudates, or evidence of obstruction, uvula midline. Mucous membranes moist. Neck: Trachea midline, no thyromegaly or masses palpated, and no cervical lymphadenopathy. Supple, full range of motion without nuchal rigidity, or vertebral point tenderness. No Meningismus. Chest/axilla: Normal chest wall appearance and motion. Nontender with no deformity. No lesions are appreciated. Cardiovascular: Regular rate and rhythm with a normal S1 and S2. No gallops, murmurs, or rubs. Normal PMI, no JVD. No pulse deficits. Respiratory: Lungs have equal breath sounds bilaterally, clear to auscultation and percussion. No rales, rhonchi or wheezes noted. No increased work of breathing, no retractions or nasal flaring. Abdomen/GI: Soft, non-tender, with normal bowel sounds. No distension or tympany. No guarding or rebound. No evidence of tenderness throughout. Back: No spinal tenderness. No costovertebral tenderness. Full range of motion. Female : Normal external genitalia. Skin: Warm, dry with normal turgor. Normal color with no rashes, no lesions, and no evidence of cellulitis. Psych: Awake, alert, with orientation to person, place and time. Behavior, mood, and affect are within normal limits. 04:10 Neuro: Orientation: is normal, appropriate for stated age, no acute changes, Mentation: is normal, appropriate for stated age, no acute changes, Memory: is normal, appropriate for stated age, no acute changes, Cranial nerves: grossly normal, is grossly normal based on the patient's age, no acute changes, Cerebellar function: unable to test, Sensation: no obvious gross deficits, appropriate no acute changes, Gait: not tested. Babinski testing is not performed, 04:58 ECG was reviewed by the Attending Physician. chilango Vital Signs: 04:02 BP 197 / 82; Pulse 89; Resp 18; Temp 98.5; Pulse Ox 96% on R/A; Weight 99.79 kg; Height pf1 5 ft. 4 in. ; Pain 5/10; 04:43 BP 191 / 74; Pulse 124; Resp 25; Pulse Ox 95% on R/A; tm6 05:49 BP 185 / 80; Pulse 104; Resp 24; Pulse Ox 98% on R/A; tm6 06:26 BP 208 / 117; Pulse 94; Resp 19; Pulse Ox 96% on R/A; Pain 2/10; tm6 06:38 BP 187 / 110; Pulse 107; Pulse Ox 94% on R/A; tm6 04:02 Body Mass Index 37.76 (99.79 kg, 162.56 cm) pf1 04:02 Pain Scale: Adult pf1 06:26 Pain Scale: Adult tm6 NIH Stroke Scale Scores: 04:10 NIHSS Score: 0 chilango Leanna Coma Score: 04:10 Eye Response: spontaneous(4). Motor Response: obeys commands(6). Verbal Response: chilango oriented(5). Total: 15. 04:16 Eye Response: spontaneous(4). Motor Response: obeys commands(6). Verbal Response: chilango oriented(5). Total: 15. MDM: 04:02 Patient medically screened. chilango 04:02 Patient medically screened. chilango 04:16 Differential diagnosis: Contusion of Hematoma on Intracranial bleed- Concussion without chilango LOC. cerebral contusion. Data reviewed: vital signs, nurses notes, lab test result(s), EKG, radiologic studies, CT scan, plain films. Consideration of Admission/Observation Escalation of care including admission/observation considered. I considered the following discharge prescriptions or medication management in the emergency department Medications were administered in the Emergency Department. See MAR. Test considered but Not performed: MRI: no mri brain. Care significantly affected by the following chronic conditions: Hypertension, dementia, stiffman syndrome. 06/25 04:07 Order name: Basic Metabolic Panel; Complete Time: 05:29 06/25 04:07 Order name: CBC with Diff; Complete Time: 05:29 06/25 04:07 Order name: LFT's; Complete Time: 05:06/25 04:07 Order name: Magnesium; Complete Time: 05:06/25 04:07 Order name: NT PRO-BNP; Complete Time: 05:29 06/25 04:07 Order name: PT-INR; Complete Time: 05:29 06/25 04:07 Order name: Troponin HS; Complete Time: 05:29 06/25 04:07 Order name: Lipase; Complete Time: 05:29 06/25 04:10 Order name: Urinalysis w/ reflexes; Complete Time: 05:49 06/25 04:07 Order name: XRAY Chest (1 view) 06/25 04:07 Order name: CT Traumagram (Head C Spine CAP wo con) 06/25 05:51 Order name: INCENTIVE SPIROMETRY 06/25 06:01 Order name: CT Chest W/ Con 06/25 04:07 Order name: EKG; Complete Time: 04:08 06/25 04:07 Order name: Cardiac monitoring; Complete Time: 04:43 06/25 04:07 Order name: EKG - Nurse/Tech; Complete Time: 04:43 06/25 04:07 Order name: IV Saline Lock; Complete Time: 04:26 06/25 04:07 Order name: Labs collected and sent; Complete Time: 04:26 06/25 04:07 Order name: O2 Per Protocol; Complete Time: 04:08 06/25 04:07 Order name: O2 Sat Monitoring; Complete Time: 04:08 06/25 06:01 Order name: Sling: right; Complete Time: 06:27 chilango EC:58 Rate is 97 beats/min. Rhythm is regular. QRS [place] is Normal. AL interval is normal. QRS chilango interval is normal. QT interval is normal. No Q waves. T waves are Normal. T waves are Inverted. ST Segment is depressed in leads II, III, aVF, V3, V4, V5, V6. Clinical impression: NSR w/ Non-specific ST/T Changes. Interpreted by me. Reviewed by me. Administered Medications: 05:30 Discontinued: ns 0.9% 1000 ml IV at 125 ml/hr continuous chilango 05:06 Drug: NS 0.9% IV 1000 ml IV at 125 ml/hr continuous Route: IV; Rate: 125 ml/hr; Site: tm6 right antecubital; 05:47 Follow up: IV Status: Order to discontinue infusion tm6 06:02 Drug: NS 0.9% with KCl IV 20 mEq/L 1000 ml IV at 125 ml/hr continuous Route: IV; Rate: tm6 125 ml/hr; Site: right antecubital; 06:03 Drug: Potassium Chloride IV 20 mEq IV at per protocol once; administer over 1-2 hours tm6 Route: IV; Rate: per protocol; Site: right antecubital; 06:03 Drug: Potassium PO Effervescent Tablet 25 mEq PO once; dissolve in 4 ounces of water or tm6 juice Route: PO; Disposition Summary: 06/25/23 04:20 Hospitalization Ordered Notes: Hospitalization Status: Observation chilango Provider: Esau Hart cha Location: Telemetry/MedSurg (Inpatient) chilango Condition: Fair chilango Problem: new chilango Symptoms: have improved chilango Bed/Room Type: Standard chilango Room Assignment: 229(06/25/23 04:32) rv1 Diagnosis - Fall on same level, unspecified chilango - Weakness - stiffman syndrome chilango - Unspecified injury of head, initial encounter - large right occipital hematoma chilango - Hypokalemia chilango - Solitary pulmonary nodule - right upper lobe 2.3 cm chilango - Fracture of clavicle - right, subacute chilango - Pleural effusion, not elsewhere classified - right, moderate chilango - Multiple fractures of ribs, right side chilango - History of falling chilango - Repeated falls chilango Forms: - Medication Reconciliation Form chilango - SBAR form chilango - Leadership Thank You Letter chilango NIH Stroke Scale - NIH Stroke Score Date: 06/25/2023 Time: 04:10 Total Score = 0 10. Dysarthria (speech clarity - read or repeat words) - 0(Normal) 11. Extinction and Inattention (visual/tactile/auditory/spatial/personal) - 0(No abnormality) 1a. Level of Consciousness (LOC) - 0(Alert) 1b. Level of Consciousness (LOC) (Month \T\ Age) - 0(Both) 1c. LOC Commands (Open \T\ Closes Eyes/Cold Storage Worker) - 0(Both) 2. Best Gaze (Lateral Gaze Paresis) - 0(Normal) 3. Visual Field Loss - 0(No visual loss) 4. Facial Palsy - 0(Normal) 5a. Left Arm: Motor (10-second hold) - 0(No drift) 5b. Right Arm: Motor (10-second hold) - 0(No drift) 6a. Left Leg: Motor (5-second hold - always test supine) - 0(No drift) 6b. Right Leg: Motor (5-second hold - always test supine) - 0(No drift) 7. Limb Ataxia (finger/nose \T\ heel/bhakta - test with eyes open) - 0(Absent) 8. Sensory Loss (pinprick arms/legs/face) - 0(Normal) 9. Best Language: Aphasia (description/naming/reading) - 0(No aphasia) Initials: chilango Signatures: Dispatcher [employer] Duc Barron MD MD cha Finley, Pamala RN RN pf1 Cinthya Carbajal rv1 Nilson Flower RN RN tm6 Corrections: (The following items were deleted from the chart) 04:32 04:20 chilango loja
[2023-06-25 04:55] LABS: Absolute Lymphocytes (CBC) 1.1 K/uL (0.7-4.9); Hematocrit 33.8 % (36.0-45.0); Lymphocytes % 12.4 % (15.3-44.8); MCV 91.5 fL (80-100); MPV 8.5 fL (7.6-11.3); Platelets 228 thou/uL (152-406); RBC Red Blood Cell Count 3.69 M/uL (3.86-4.86)
[2023-06-25] MEDS ORDERED: NA CHLORIDE 0.9% 1,000 ML ONE (05:00)
[2023-06-25 05:01] LABS: Protime INR 1.03
[2023-06-25 05:25] LABS: Albumin 3.3 g/dL (3.4-5.0); Bilirubin Direct 0.2 mg/dL (0-0.2); Bilirubin Indirect, Calculated 0.3 mg/dL (0.2-0.8); Bilirubin Total 0.5 mg/dL (0.2-1.0); Magnesium 1.9 mg/dL (1.6-2.4); Potassium 2.9 mEq/L (3.5-5.1); Protein, Total 6.4 g/dL (6.4-8.2); Troponin High Sensitivity 11.7 pg/mL (<58.9)
[2023-06-25 05:40] LABS: Specific Gravity 1.013 (1.005-1.030); Urine Bacteria <20 /HPF (<20); Urine Bilirubin NEGATIVE (Negative); Urine Blood Negative (Negative); Urine Clarity Turbid (Clear); Urine Color Light-Yellow (Yellow); Urine Glucose 2+ (Negative); Urine Protein NEGATIVE (Negative); Urine RBC <5 /HPF (None Seen); Urine Urobilinogen Normal (Normal)
[2023-06-25] MEDS ORDERED: KCL 20 MEQ/100 mL IVPB 100 ML IV ONE (05:51)
[2023-06-25] MEDS ORDERED: POTASSIUM 25 MEQ EFFERV TAB ONE (05:51)
[2023-06-25] MEDS ORDERED: NS KCL 20MEQ 1,000 ML IV ONE (05:51)
--- NOTE | 2023-06-25 07:56 | RAD REPORT ---
EXAM DESCRIPTION: CT - Thorax W/ Con - 06/25/2023 7:11 am CLINICAL HISTORY: CHEST PAIN COMPARISON: No comparisons TECHNIQUE: Axial thin cut images of the chest were obtained without IV contrast. Multiplanar reforma ts were generated and reviewed. All CT scans are performed using dose optimization technique as appropriate and may include automated exposure control or mA/KV adjustment according to patient size. FINDINGS: Multiple right rib fractures, with pronounced degrees of displacement along the right Post erior third and fourth ribs, segmental displaced fracture with angulation anteriorly along the second rib, and a minimally displaced additional fracture at the neck of the right second rib. Comminuted f racture with displacement along the midshaft right clavicle. Layering small to moderate volume of right pleural fluid, with density closer to simple fluid. Underl narendra segmental dependent right lower lobe opacification, favoring atelectasis. No mass or other infil trate in the lung parenchyma. No left-sided pleural effusion or pleural thickening. No pneumothorax. No abnormal mediastinal or hilar masses or lymphadenopathy seen. No significant aortic or pulmonary a rtery findings. Assessment is limited in the absence of IV contrast. No chest wall mass or abnormal axillary lymphadenopathy. Evaluation of the solid abdominal structures reveals no suspicious findings. IMPRESSION: Multiple right-sided rib fracture as above. Layering small to moderate volume of right pleural fluid, density approximates simple fluid, although component of a hemothorax is likely. Comminuted and displaced right clavicle midshaft fracture as well.
[2023-06-25 08:18] VITALS: BMI 23.8
--- NOTE | 2023-06-25 11:33 | RAD REPORT ---
EXAM DESCRIPTION: CT - Head C Spine Cap Wo Con - 06/25/2023 7:22 am CLINICAL HISTORY: The patient is 68 years old and is Female; DIZZINESS trauma TECHNIQUE: Axial computed tomography images of the head/brain and cervical spine without intravenous contrast. Sagittal and coronal reformatted images were created and reviewed. This CT exam was pe rformed using one or more of the following dose reduction techniques: automated exposure control, a djustment of the mA and/or kV according to patient size, and/or use of iterative reconstruction techn ique. COMPARISON: CT head May 02, 2022. FINDINGS: Brain: Unremarkable. No hemorrhage. No significant white matter disease. No edema. Ventricles: Unremarkable. No ventriculomegaly. Skull: No acute fracture. Sinuses: Unremarkable as visualized. No acute sinusitis. Mastoid air cells: Unremarkable as visualized. No mastoid effusion. Vertebrae: No acute cervical spine fracture visualized. Previous ACDF C5/C6. 2 mm anterolisthesis C4 on C5. Multilevel degenerative facet arthropathy including levels with facet joint ankylosis. Discs/spinal canal/neural foramina: See above. Soft tissues: Large left parietal scalp hematoma. Pleural space: No apical pneumothorax. * A single impression for all exams can be found at the end of this report EXAM DESCRIPTION: CT Chest, Abdomen and Pelvis Without Intravenous Contrast CLINICAL HISTORY: The patient is 68 years old and is Female; DIZZINESS TECHNIQUE: Axial computed tomography images of the chest, abdomen and pelvis without intravenous con trast. Sagittal and coronal reformatted images were created and reviewed. This CT exam was perfor med using one or more of the following dose reduction techniques: automated exposure control, adjus tment of the mA and/or kV according to patient size, and/or use of iterative reconstruction technique . COMPARISON: No relevant prior studies available. FINDINGS: CHEST: Lungs: Linear atelectasis or scarring left lower lobe. No mass. Pleural space: Moderate right pleural effusion without pneumothorax. No left pleural effusion or left pneumothorax. Heart: Unremarkable. No cardiomegaly. No significant pericardial effusion. No significant c oronary artery calcifications. ABDOMEN: Liver: Unremarkable. Gallbladder and bile ducts: Unremarkable. No calcified stones. No ductal dilation. Pancreas: Unremarkable. No ductal dilation. Spleen: Unremarkable. No splenomegaly. Adrenals: Unremarkable. No mass. Kidneys and ureters: Unremarkable. No obstructing stones. No hydronephrosis. Stomach and bowel: No bowel dilatation or obstruction. No bowel wall thickening. PELVIS: Appendix: No findings to suggest acute appendicitis. Bladder: Bladder is not well distended. Reproductive: Small uterus. No adnexal mass. CHEST, ABDOMEN and PELVIS: Intraperitoneal space: Unremarkable. No significant fluid collection. No free air. Bones/joints: Oblique displaced right clavicle fracture. Groundglass opacities in the anterior right upper lobe adjacent to the right second rib fract ure, which may represent pulmonary contusion. Nondisplaced fracture right posterior second rib, however with a comminuted displaced fractur e in the anterior aspect of the second rib. Displaced fractures in the right posterior third and fourth ribs, with nondisplaced fractures in the anterior aspects of the third and fourth ribs. Mildly displaced fracture right lateral fifth and sixth ribs. Mild thoracic kyphoscoliosis. No vertebral compression fracture visualized. No acute sternal fracture. No sternoclavicular joint dislocation. Previous ORIF left humerus. No acute fracture in the pelvis or proximal femora. Soft tissues: There are bilateral breast implants. Small bilateral inguinal hernias containing fat only. Vasculature: Unremarkable. No aortic aneurysm. Lymph nodes: Unremarkable. No enlarged lymph nodes. * A single impression for all exams can be found at the end of this report IMPRESSION: CT Head and Cervical Spine Without Intravenous Contrast: 1. Large left parietal scalp hematoma. 2. No intracranial hemorrhage. No acute skull fracture. 3. No acute cervical spine fracture visualized. Previous ACDF C5/C6. 4. 2 mm anterolisthesis C4 on C5. 5. Multilevel degenerative facet arthropathy including levels with facet joint ankylosis. CT Chest, Abdomen and Pelvis Without Intravenous Contrast: 1. Possible small pulmonary contusion in the anterior right upper lobe, adjacent to the comminuted fractures in the anterior right second rib. 2. Moderate right pleural effusion without pneumothorax. 3. Multiple right-sided rib fractures. This includes multiple fractures in three consecutive ribs. 4. Oblique displaced right clavicle fracture. 5. No findings to suggest acute intra-abdominal injury. 6. Additional non-emergent findings as above. Electronically signed by: Fiorella Mejias MD 06/25/2023 05:36 AM TECHNICAL SUPPORT REPRESENTATIVE Due to temporary technical issues with the PACS/Fluency reporting system, reports are being signed by the in house radiologist without review as a courtesy to ensure prompt reporting. The interpreting r adiologist is fully responsible for the content of the report.
--- NOTE | 2023-06-25 11:37 | RAD REPORT ---
EXAM DESCRIPTION: RAD - Chest Single View - 06/25/2023 4:23 am CLINICAL HISTORY: COUGH COMPARISON: None. TECHNIQUE: XR CHEST 1 VIEW 06/25/2023 4:07 AM SUPERVISOR ACCOUNTING CLERKS FINDINGS: The heart is borderline in size. There is suggestion of a right upper lobe pulmonary nodul e measuring 2.3 cm. There is no pleural effusion. There is no pneumothorax. There are fractures of th e posterior right third, fourth, fifth and sixth ribs. IMPRESSION: Right upper lobe pulmonary nodule. Recommend CT. Electronically signed by: Jimenez Hand MD 06/25/2023 04:39 AM SUPERVISOR ACCOUNTING CLERKS Due to temporary technical issues with the PACS/Fluency reporting system, reports are being signed by the in house radiologist without review as a courtesy to ensure prompt reporting. The interpreting r adiologist is fully responsible for the content of the report.
[2023-06-25] MEDS ORDERED: TRAMADOL HCL 50 MG TAB PO PRN (13:09)
[2023-06-25 14:22] LABS: Magnesium 2.1 mg/dL (1.6-2.4); Potassium 3.6 mEq/L (3.5-5.1)
--- NOTE | 2023-06-25 17:34 | EKG ---
Test Date: 2023-06-25 Test Time: 04:30:44 Tour Escort: PAUL MEASUREMENT RESULTS: Intervals: Rate: 97 VT: 130 QRSD: 82 QT: 364 QTc: 462 [place]: P: 80 VT: 130 QRS: 93 T: -2 INTERPRETIVE STATEMENTS: Normal sinus rhythm Right atrial enlargement Rightward axis Pulmonary disease pattern ST & T wave abnormality, consider inferior ischemia Abnormal ECG Compared to ECG 03/17/2023 10:55:43 Possible ischemia now present ST (T wave) deviation still present Electronically Signed On 06-25-23 17:33:34 YAM CURER by Alec Mcarthur
--- NOTE | 2023-06-25 18:02 | P.SSS ---
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 SHE IS TAKEN CARE BY HER BROTHER IN LAW AT HER HOME. SHE HAD FALLEN A FEW DAYS AGO AND WAS SENT HOME. SHE FELL AGAIN TRYING TO WALK WITH WALKER TO BATHROOM. SHE BARELY WALKS A FEW STEPS. AT BASELINE SHE CAN'T SIT MUCH. SHE IS IN BED ALL DAY. SHE HAS NOT DONE LAB FOR DM UNTIL I SENT A BIODIESEL PLANT MANAGER TO HER HOME SHE COULD NOT GO OUT TO DO LAB. HER LAST A1C WAS 7.9, THAT IS NOT BAD FOR SOMEONE WITH BRITTLE DM WHO NEVER CHECKS GLUCOSE. FOLLOWING IS HER HISTORY. 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] Allergies No Known Allergies Allergy (Unverified 03/31/17 03:43) Home medications list reviewed: Yes Home Medications: Insulin Lispro [Humalog] 03/31/17 Metoclopramide HCl [Reglan] 03/31/17 Insulin Detemir [Levemir*] 20 units SQ DAILY WITH BREAKFAST #1 vial 04/02/17 - Past Medical/Surgical History Has patient received pneumonia vaccine in the past: Yes Diabetic: Yes -: type 1 diabetes -: "stiff man" syndrome - Social History Smoking Status: Never smoker Alcohol use: No CD- Drugs: No Caffeine use: No Place of Residence: Home Review of Systems 10-point ROS is otherwise unremarkable General: Weakness, As per HPI Cardiovascular: As per HPI (PAIN IN CHEST, RIBS.) Physical Examination - Vital Signs Temperature: 97.7 F Blood Pressure: 187/89 Pulse: 102 Respirations: 16 Pulse Ox (%): 91 - Physical Exam General: Oriented x3, Cachectic, Mild distress, Moderate distress HEENT: Atraumatic, PERRLA, Mucous membr. moist/pink, EOMI, Sclerae nonicteric Neck: Supple, 2+ carotid pulse no bruit, No LAD, Without JVD or thyroid abnormality Respiratory: Clear to auscultation bilaterally, Normal air movement Cardiovascular: Regular rate/rhythm, Normal S1 S2 Gastrointestinal: Normal bowel sounds, No tenderness Musculoskeletal: No tenderness Integumentary: No rashes Neurological: Normal gait, Normal speech, Normal strength at 5/5 x4 extr, Normal tone, Normal affect Lymphatics: No axilla or inguinal lymphadenopathy - Diagnosis (Problem(s)) (1) Frequent falls Current Visit: Yes Status: Acute Plan: NOT MUCH CAN BE DONE EXCEPT PT. WILL PROVIDE THIS. STIFF PERSON DISEASE IS PROGRESSIVE WITH NO CURE. (2) Multiple rib fractures Current Visit: Yes Status: Acute Plan: SHE HAS ONE COMMUNITED FRACTURE OF SECOND RIB ON R SIDE AND OTHER 2 RIBS ARE FRONT AND BACK FRACTURES SHE IS LAYING IN BED WITH MILD PAIN I GAVE HER TRAMADOL FOR PAIN. SHE REFUSES TO GO TO [place], [facility] OR REHAB. SHE WANTS TO GO HOME. I HAVE TALKED TO C.O.D. BILLER. Qualifiers: Encounter type: initial encounter (3) Brittle diabetes Current Visit: Yes Status: Chronic Plan: ABOVE CONT THERAPY. - Disposition Disposition: ROUTINE DISCHARGE
[2023-06-25 19:03] LABS: MPV 8.2 fL (7.6-11.3); Platelets 232 thou/uL (152-406)
[2023-06-25] MEDS ORDERED: ENOXAPARIN 40 MG/0.4 ML SQ SCH (20:00)
[2023-06-25] MEDS ORDERED: MORPHINE 2 MG/ML SYR IV PRN (21:17)
[2023-06-25] MEDS ORDERED: ONDANSETRON 4 MG/2 ML VIAL IV PRN (21:17)
[2023-06-25] MEDS ORDERED: NA CHLORIDE 0.9% 1,000 ML IV SCH (21:17)
[2023-06-25] MEDS ORDERED: ACETAMINOPHEN 500 MG TAB PO PRN (21:17)
[2023-06-26 06:22] LABS: Absolute Lymphocytes (CBC) 1.2 K/uL (0.7-4.9); Hematocrit 36.1 % (36.0-45.0); Lymphocytes % 20.3 % (15.3-44.8); MCV 92.2 fL (80-100); MPV 8.4 fL (7.6-11.3); Platelets 218 thou/uL (152-406); RBC Red Blood Cell Count 3.91 M/uL (3.86-4.86)
[2023-06-26] MEDS ORDERED: TRAMADOL HCL 50 MG TAB PO PRN (06:40)
[2023-06-26 06:41] LABS: Potassium 3.9 mEq/L (3.5-5.1)
[2023-06-26] MEDS ORDERED: ACETAMINOPHEN 325 MG TABLET PO PRN (07:12)
[2023-06-26] MEDS ORDERED: LOSARTAN POTASSIUM 50 MG TABLET PO SCH (09:00)
[2023-06-26 09:32] VITALS: BP 178/82; TEMP 97.8
[2023-06-26 10:25] VITALS: O2SAT 94
== END 2023-06-26 11:59 | disposition home health service (06) ==
LOC: ER 03:56 → ERHOLD 04:21 → 2ND 06:32
PROVIDERS: ADMIT Internal Medicine; ATTEND Internal Medicine
DX: S09.90XA Unspecified injury of head, initial encounter (principal); S22.41XA Multiple fractures of ribs, right side, initial encounter for closed fracture; S42.021A Displaced fracture of shaft of right clavicle, initial encounter for closed fracture; W18.30XA Fall on same level, unspecified, initial encounter; Z91.81 History of falling; Y93.89 Activity, other specified; Y92.009 Unspecified place in unspecified non-institutional (private) residence as the place of occurrence of the external cause; G25.82 Stiff-man syndrome; E87.6 Hypokalemia; R91.1 Solitary pulmonary nodule; J90 Pleural effusion, not elsewhere classified; G89.29 Other chronic pain; E10.22 Type 1 diabetes mellitus with diabetic chronic kidney disease; N18.30 Chronic kidney disease, stage 3 unspecified; R53.2 Functional quadriplegia; Z79.4 Long term (current) use of insulin
CPT/HCPCS: 96361; 93005; 85025 ×2; 81001; 80048 ×3; 36415 ×2; 83735 ×2; 85049; 85610; 82947 ×4; 80076; 84484; 83690; 83880; 70450; 71250; 72125; 71260; 71045; 94010; 96374; 99285; Q9967; J3480 ×2; J1650; J2270; J7030; G0378 ×4

== ENCOUNTER 2024-02-08 10:23 | Emergency (ER) | payer OTHER ==
--- OUTSIDE RECORDS SUMMARY | 2024-02-08 10:27 | XMS REPORT | Continuity of Care Document ---
Author Name Unknown Address [address] [place] [address] [employer] Address [address] [place] [address] [address] [place] [address] Care Team Providers Care Admissions Counselor Name Role Phone [email or web address] Attending Clinician Unavaila ble [email or web address] Admitting Clinician Unavaila ble Encounters Start Date/Time End Date/Time Encounter Type Admission Type Attending Clinicians Care Facility Care Department Encounter ID Source 2023-04-13 00:00:00 2023-04-13 00:00:00 Outpatient [email or web address] [facility] [id number] [facility]
[2024-02-08] MEDS ORDERED: ONDANSETRON 4 MG/2 ML VIAL ONE (10:47)
[2024-02-08] MEDS ORDERED: NA CHLORIDE 0.9% 1,000 ML ONE (10:48)
[2024-02-08] MEDS ORDERED: MORPHINE 4 MG/ML SYR ONE (10:48)
[2024-02-08 11:09] LABS: Absolute Eosinophils 0.2 K/uL (0-0.5); Absolute Lymphocytes (CBC) 1.1 K/uL (0.7-4.9); Absolute Monocytes 0.3 K/uL (0.1-1.3); Absolute Neutrophil 3.8 K/uL (1.8-8.0); Basophils % 0.4 % (0-1.3); Eosinophils % 4.2 % (0-4.4); Hematocrit 38.7 % (36.0-45.0); Hemoglobin 12.6 g/dL (12.0-15.0); Lymphocytes % 19.8 % (15.3-44.8); MCH 30.8 pg (27.0-35.0); MCHC 32.6 g/dL (32.0-36.0); MCV 94.4 fL (80-100); MPV 8.7 fL (7.6-11.3); Monocytes % 6.4 % (3.3-12.3); Neutrophils % 69.2 % (41.7-73.7); Platelets 156 thou/uL (152-406); Red Cell Distribution Width 13.8 % (12.1-15.2)
[2024-02-08 11:30] LABS: Albumin 3.7 g/dL (3.4-5.0); Albumin/Globulin Ratio 1.2 (1.1-1.8); Anion Gap 6.7 mEq/L (5.0-15.0); Bilirubin Total 0.8 mg/dL (0.2-1.0); Globulin 3.1 g/dL (2.3-3.5); Potassium 3.7 mEq/L (3.5-5.1); Protein, Total 6.8 g/dL (6.4-8.2)
--- NOTE | 2024-02-08 12:04 | RAD REPORT ---
EXAM DESCRIPTION: CT - Abdomen Pelvis W Contrast - 02/08/2024 11:46 am CLINICAL HISTORY: ABD PAIN COMPARISON: Thorax W/ Con dated 06/25/2023; Head C Spine Cap Wo Con dated 06/25/2023 TECHNIQUE: Thin cut axial CT imaging of the abdomen and pelvis was performed following intravenous a dministration of iodinated contrast. Multiplanar reformats were generated and reviewed. All CT scans are performed using dose optimization technique as appropriate and may include automated exposure control or mA/KV adjustment according to patient size. FINDINGS: Bilateral breast implants partially visualized. Mild platelike left basilar atelectasis. N o suspicious findings in the lung bases. Circumferential mild wall thickening along the distal esopha kalina, could reflect sequelae of esophagitis or reflux disease. The liver, spleen, and adrenal glands show no suspicious findings. Mild prominence of the main pancre atic duct, measuring up to 5 mm, nonspecific, and appears grossly stable compared to prior exams. Gal lbladder and biliary tree are also without suspicious finding. Symmetric renal function is seen with no hydronephrosis or suspicious renal mass. No dilated bowel loops or bowel wall thickening. No free air, free fluid or inflammatory stranding. N o hernia, mass or bulky lymphadenopathy. The urinary bladder is without significant finding. No suspicious bony findings. IMPRESSION: No acute intra-abdominal process. Circumferential mild wall thickening along the distal esophagus, may reflect sequelae of esophagitis or reflux disease. Nonspecific mild prominence of the main pancreatic duct, up to 5 mm in caliber, appears stable. Pleas e correlate clinically and with pancreatic enzyme levels, and consider gastroenterology consultation.
[2024-02-08] MEDS ORDERED: PANTOPRAZOLE 40 MG INJ ONE (12:33)
[2024-02-08] MEDS ORDERED: MAGNES/ALUMIN/SIMET 30ML UCUP ONE (12:33)
[2024-02-08] MEDS ORDERED: LIDOCAINE VISCOUS 2% 10ML ORAL SOLN ONE (12:33)
[2024-02-08 13:40] LABS: Specific Gravity > 1.030 (1.005-1.030); Urine Bilirubin NEGATIVE (Negative); Urine Blood Negative (Negative); Urine Clarity Clear (Clear); Urine Color Light-Yellow (Yellow); Urine Glucose NEGATIVE (Negative); Urine Ketones TRACE (Negative); Urine Microscopic Reflex YN NO UMIC; Urine Nitrite NEGATIVE (Negative); Urine Protein NEGATIVE (Negative); Urine Urobilinogen Normal (Normal)
--- NOTE | 2024-02-08 14:44 | ER ---
Nurse's Notes [facility] Name: Phoebe Esteban Age: 69 yrs Sex: Female : 1955 Arrival Date: 02/08/2024 Time: 10:23 Bed 8 Private MD: Diagnosis: Lower abdominal pain, unspecified Presentation: 02/07 10:39 Chief complaint: EMS states: abdominal discomfort/pressure but denies pain. Coronavirus kj2 screen: At this time, the client does not indicate any symptoms associated with coronavirus-19. Ebola Screen: No symptoms or risks identified at this time. Initial Sepsis Screen: Does the patient meet any 2 criteria? No. Patient's initial sepsis screen is negative. Does the patient have a suspected source of infection? No. Patient's initial sepsis screen is negative. Risk Assessment: Do you want to hurt yourself or someone else? Patient reports no desire to harm self or others. Onset of symptoms was February 08, 2024. 10:39 Method Of Arrival: EMS: [facility] kj2 10:39 Acuity: NELL 3 kj2 Triage Assessment: 10:43 General: Appears in no apparent distress. Behavior is calm, cooperative. Pain: Denies kj2 pain. Cardiovascular: Patient's skin is warm and dry. Respiratory: Airway is patent Respiratory effort is even, unlabored. GI: Reports abdominal discomfort/pressure in lower right quadrant. Historical: - Allergies: 10:41 No Known Allergies; kj2 - Home Meds: 10:41 Humalog 100 unit/mL Sub-Q crtg [Active]; lisinopril Oral [Active]; MAMENATINE [Active]; kj2 TAJAYO [Active]; tizanidine Oral [Active]; - PMHx: 10:41 Dementia; Depression; Diabetes - IDDM; Hypercholesterolemia; Hypertension; STIFFMAN kj2 SYNDROME; - PSHx: 10:41 Tonsillectomy; kj2 - Immunization history:: Adult Immunizations unknown, Last tetanus immunization: unknown. - Infectious Disease History:: Denies. - Social history:: Smoking status: unknown Patient/guardian denies using tobacco products. Screenin:28 [facility] ED Fall Risk Assessment (Adult) History of falling in the last 3 months, kj2 including since admission No falls in past 3 months (0 pts) Confusion or Disorientation Yes (5 pts) Intoxicated or Sedated No (0 pts) Impaired Gait Yes (1 pt) Mobility Assist Device Used No (0 pt) Altered Elimination Yes (1 pt) Score/Fall Risk Level 3 or more points = High Risk Oriented to surroundings, Maintained a safe environment, Educated pt \T\ family on fall prevention, incl call for assistance when getting out of bed, Hourly rounding (assess needs \T\ fall precautionary measures) done. Abuse screen: Denies threats or abuse. Denies injuries from another. Nutritional screening: No deficits noted. Tuberculosis screening: No symptoms or risk factors identified. Assessment: 11:28 General: see triage assessment. kj2 11:30 GI: Bowel sounds present X 4 quads. Abdomen is tender to palpation Reports abdominal kj2 discomfort. 12:40 Reassessment: Patient appears in no apparent distress at this time. Patient and/or kj2 family updated on plan of care and expected duration. Pain level reassessed. Patient is alert, oriented x 3, equal unlabored respirations, skin warm/dry/pink. 15:24 General: awaiting ride, patient's [id number] calling for ride. kj2 Vital Signs: 10:39 BP 199 / 82; Pulse 90; Resp 18; Temp 98; Pulse Ox 98% on R/A; Weight 25.85 kg; Height 5 kj2 ft. 4 in. ; Pain 0/10; 10:44 BP 199 / 82; Pulse 90; Resp 18; Temp 98; Pulse Ox 98% on R/A; kj2 12:39 BP 169 / 89; Pulse 89; Resp 16; Temp 98; Pulse Ox 95% on R/A; kj2 13:28 BP 164 / 80; Pulse 97; Resp 18; Pulse Ox 97% on R/A; kj2 15:04 BP 158 / 76; Pulse 79; Resp 18; Temp 98.2; Pulse Ox 95% on R/A; kj2 10:39 Body Mass Index 9.78 (25.85 kg, 162.56 cm) kj2 10:39 Pain Scale: Adult kj2 ED Course: 10:27 Patient arrived in ED. eb 10:30 Duc Ludwig PA is PHCP. cp 10:30 Fiorella Baptiste MD is Attending Physician. cp 10:38 Soila Esparza, RN is Primary Nurse. kj2 10:41 Triage completed. kj2 11:20 Missed attempt(s): 20 gauge in right antecubital area. kj2 11:22 Repeat lab(s) drawn. by me, held in ED. Inserted saline lock: 22 gauge in left forearm, cm10 using aseptic technique. Blood collected. Flushed with 10 mL NS. 11:27 Patient has correct armband on for positive identification. Call light in reach. Side kj2 rails up X 1. Provided Education on: call light, fall precautions. 11:30 No provider procedures requiring assistance completed. kj2 11:30 Arm band placed on Patient placed in an exam room, on a stretcher. Labs ordered per kj2 protocol. Drawn by ED staff. 11:48 CT Abd/Pelvis - IV Contrast Only In Process Unspecified. EDMS 13:28 Assisted with bedpan. kj2 15:14 IV discontinued, intact, bleeding controlled, No redness/swelling at site. Pressure kj2 dressing applied. Administered Medications: 11:22 Drug: morphine IVP or IV 4 mg IVP once over 4 mins Route: IVP; Infused Over: 4 mins; kj2 Site: left forearm; 12:00 Follow up: Response: No adverse reaction; Pain is decreased kj2 11:26 Drug: NS 0.9% IV 1000 ml IV at 999 ml/hr Per protocol Route: IV; Rate: 999 ml/hr; Site: kj2 left forearm; 12:29 Follow up: IV Status: Completed infusion; IV Intake: 1000ml kj2 11:26 Drug: Ondansetron IVP 4 mg IVP once; over 2 minutes Route: IVP; Site: left forearm; kj2 12:00 Follow up: Response: No adverse reaction kj2 12:39 Drug: Pantoprazole IVP 40 mg IVP once Route: IVP; Site: left forearm; kj2 13:18 Follow up: Response: No adverse reaction kj2 12:39 Drug: GI Cocktail without - (Maalox PO 30 ml, Lidocaine Mucous Membrane 2 % 15 kj2 ml) PO once Route: PO; 13:18 Follow up: Response: No adverse reaction; Pain is decreased kj2 Medication: 11:29 VIS not applicable for this client. kj2 Intake: 12:29 IV: 1000ml; Total: 1000ml. kj2 Outcome: 14:43 Discharge ordered by MD. dash 15:14 Condition: stable kj2 15:14 Discharge instructions given to Instructed on discharge instructions, follow up and referral plans. medication usage, Prescriptions given X 1, 15:46 Discharged to home via ambulance, with family, ED staff assisted patient to car via kj2 wheelchair 15:47 Patient left the ED. kj2 Signatures: Dispatcher [employer] EDMS Duc Ludwig PA PA cp Botello, Elizabeth eb Martinez, Clarissa RN RN cm10 Soila Esparza RN RN kj2 Corrections: (The following items were deleted from the chart) 15:26 15:24 General: awaiting ride, patient's [id number] awaiting ride. kj2 kj2
--- NOTE | 2024-02-08 14:44 | EDPHYS ---
Physician Documentation [facility] Name: Phoebe Esteban Age: 69 yrs Sex: Female : 1955 Arrival Date: 02/08/2024 Time: 10:23 Bed 8 Private MD: ED Physician Fiorella Baptiste HPI: 02/07 10:35 This 69 yrs old Female presents to ER via EMS with complaints of Abdominal Problem. cp 10:35 The patient presents with abdominal pain. cp 10:35 The symptoms are described as pressure/discomfort. cp 10:35 Onset: The symptoms/episode began/occurred this morning. cp 10:35 Associated signs and symptoms: Pertinent positives: dysuria, Pertinent negatives: cp constipation, diarrhea, fever, vomiting. Severity of pain: in the emergency department the pain is unchanged despite EMS interventions. Historical: - Allergies: 10:41 No Known Allergies; kj2 - Home Meds: 10:41 Humalog 100 unit/mL Sub-Q crtg [Active]; lisinopril Oral [Active]; MAMENATINE [Active]; kj2 TAJAYO [Active]; tizanidine Oral [Active]; - PMHx: 10:41 Dementia; Depression; Diabetes - IDDM; Hypercholesterolemia; Hypertension; STIFFMAN kj2 SYNDROME; - PSHx: 10:41 Tonsillectomy; kj2 - Immunization history:: Adult Immunizations unknown, Last tetanus immunization: unknown. - Infectious Disease History:: Denies. - Social history:: Smoking status: unknown Patient/guardian denies using tobacco products. ROS: 10:40 Abdomen/GI: Positive for abdominal pain, of the lower abdomen, Negative for vomiting, cp diarrhea, constipation, 10:40 Eyes: Negative for injury, pain, redness, and discharge, cp 10:40 Constitutional: Negative for body aches, chills, fever, poor PO intake, 10:40 ENT: Negative for drainage from ear(s), ear pain, sore throat, difficulty swallowing, difficulty handling secretions, 10:40 Cardiovascular: Negative for chest pain, palpitations, 10:40 Respiratory: Negative for cough, shortness of breath, wheezing, 10:40 Back: Negative for radiated pain, 10:40 Neuro: Negative for altered mental status, weakness, 10:40 All other systems are negative, Exam: 10:45 Constitutional: The patient appears in no acute distress, alert, awake, non-toxic, well cp developed, well nourished, uncomfortable, 10:45 Head/Face: Normocephalic, atraumatic. cp 10:45 Eyes: Periorbital structures: appear normal, Conjunctiva: normal, no exudate, no injection, Sclera: no appreciated abnormality, Lids and lashes: appear normal, bilaterally, 10:45 ENT: External ear(s): are unremarkable, Nose: is normal, Mouth: Lips: moist, Oral mucosa: moist, Posterior pharynx: Airway: no evidence of obstruction, patent, 10:45 Chest/axilla: Inspection: normal, Palpation: is normal, no crepitus, no tenderness, 10:45 Cardiovascular: Rate: normal, Rhythm: regular, Edema: is not appreciated, JVD: is not appreciated, 10:45 Respiratory: the patient does not display signs of respiratory distress, Respirations: normal, no use of accessory muscles, no retractions, labored breathing, is not present, Breath sounds: are clear throughout, no decreased breath sounds, no stridor, no wheezing, 10:45 Abdomen/GI: Inspection: abdomen appears normal, Bowel sounds: active, all quadrants, Palpation: soft, in all quadrants, moderate abdominal tenderness, in the right lower quadrant and left lower quadrant, rebound tenderness, is not appreciated, voluntary guarding, is elicited in the right lower quadrant and left lower quadrant, 10:45 Back: CVA tenderness, is absent, 10:45 Neuro: Orientation: no acute changes, per EMS, Mentation: no acute changes, per EMS, Vital Signs: 10:39 BP 199 / 82; Pulse 90; Resp 18; Temp 98; Pulse Ox 98% on R/A; Weight 25.85 kg; Height 5 kj2 ft. 4 in. ; Pain 0/10; 10:44 BP 199 / 82; Pulse 90; Resp 18; Temp 98; Pulse Ox 98% on R/A; kj2 12:39 BP 169 / 89; Pulse 89; Resp 16; Temp 98; Pulse Ox 95% on R/A; kj2 13:28 BP 164 / 80; Pulse 97; Resp 18; Pulse Ox 97% on R/A; kj2 15:04 BP 158 / 76; Pulse 79; Resp 18; Temp 98.2; Pulse Ox 95% on R/A; kj2 10:39 Body Mass Index 9.78 (25.85 kg, 162.56 cm) kj2 10:39 Pain Scale: Adult kj2 MDM: 10:30 Patient medically screened. cp 14:42 Data reviewed: vital signs, nurses notes, lab test result(s), radiologic studies, CT cp scan, and as a result, I will discharge patient. 14:42 Differential diagnosis: appendicitis, bowel obstruction, diverticulitis, non-specific cp abd pain, Pyelonephritis, Ureterolithiasis, urinary tract infection. I considered the following discharge prescriptions or medication management in the emergency department Medications were administered in the Emergency Department. See MAR. Care significantly affected by the following chronic conditions: Diabetes, Hypertension. Counseling: I had a detailed discussion with the patient and/or guardian regarding the historical points, exam findings, and any diagnostic results supporting the discharge/admit diagnosis, lab results, radiology results, to return to the emergency department if symptoms worsen or persist or if there are any questions or concerns that arise at home. Special discussion: Based on the patient's Hx, exam, and Dx evaluation, there is no indication for emergent surgery or inpatient Tx. It is understood by the patient/guardian that if the Sx's persist or worsen they need to return immediately for re-evaluation. 02/07 10:32 Order name: CBC with Diff; Complete Time: 12:24 cp 02/07 12:25 Interpretation: Reviewed. 02/07 10:32 Order name: CMP; Complete Time: 12:24 cp 02/07 12:25 Interpretation: Normal except: CL 108; GLUC 131; GFR 60. cp 02/07 10:32 Order name: Lipase; Complete Time: 12:24 cp 02/07 10:32 Order name: Urinalysis w/ reflexes; Complete Time: 13:43 cp 02/07 11:22 Order name: CT Abd/Pelvis - IV Contrast Only; Complete Time: 12:24 cp 02/07 10:32 Order name: IV Saline Lock; Complete Time: 10:45 cp 02/07 10:32 Order name: Labs collected and sent; Complete Time: 11:21 cp Administered Medications: 11:22 Drug: morphine IVP or IV 4 mg IVP once over 4 mins Route: IVP; Infused Over: 4 mins; kj2 Site: left forearm; 12:00 Follow up: Response: No adverse reaction; Pain is decreased kj2 11:26 Drug: NS 0.9% IV 1000 ml IV at 999 ml/hr Per protocol Route: IV; Rate: 999 ml/hr; Site: kj2 left forearm; 12:29 Follow up: IV Status: Completed infusion; IV Intake: 1000ml kj2 11:26 Drug: Ondansetron IVP 4 mg IVP once; over 2 minutes Route: IVP; Site: left forearm; kj2 12:00 Follow up: Response: No adverse reaction kj2 12:39 Drug: Pantoprazole IVP 40 mg IVP once Route: IVP; Site: left forearm; kj2 13:18 Follow up: Response: No adverse reaction kj2 12:39 Drug: GI Cocktail without - (Maalox PO 30 ml, Lidocaine Mucous Membrane 2 % 15 kj2 ml) PO once Route: PO; 13:18 Follow up: Response: No adverse reaction; Pain is decreased kj2 Disposition Summary: 02/08/24 14:43 Discharge Ordered Notes: Location: Home cp Problem: new cp Symptoms: have improved cp Condition: Stable cp Diagnosis - Lower abdominal pain, unspecified cp Followup: cp - With: Private Physician - When: 1 - 2 days - Reason: Worsening of condition Discharge Instructions: - Discharge Summary Sheet cp - Abdominal Pain, Adult cp Forms: - Medication Reconciliation Form cp - Antibiotic Education cp - Prescription Opioid Use cp - Patient Portal Instructions cp - Leadership Thank You Letter cp Prescriptions: - dicyclomine 20 mg Oral tablet - take 1 tablet ORAL route 4 times per day; 30 tablet; Refills: 0, Product cp Selection Permitted Signatures: Dispatcher [employer] EDDuc Ruth PA PA cp Soila Esparza, RN RN kj2
[2024-02-08 16:15] VITALS: BP 158/76; TEMP 98.2; O2SAT 95
== END 2024-02-08 15:47 | disposition home or self-care (01) ==
LOC: ER 10:23
DX: R10.30 Lower abdominal pain, unspecified (principal); R30.0 Dysuria; E11.9 Type 2 diabetes mellitus without complications; Z79.4 Long term (current) use of insulin; I10 Essential (primary) hypertension; F03.90 Unspecified dementia, unspecified severity, without behavioral disturbance, psychotic disturbance, mood disturbance, and anxiety
CPT/HCPCS: 96361; 85025; 36415; 81003; 83690; 80053; 74177; 96375; 96374; 99284; Q9967; J2470; J2405; J7030